=== PATIENT | female | born 2000 | race Caucasian/White ===

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

== ENCOUNTER → 2020-01-03 08:30 | Outpatient (BNVA) | payer MEDICAID, SELFPAY | PROVIDERS: Family Provider Nurse Practitioner Family; Visit Provider Obstetrics & Gynecology | DX: O99.810 Abnormal glucose complicating pregnancy (principal); Z34.03 Encounter for supervision of normal first pregnancy, third trimester; O99.013 Anemia complicating pregnancy, third trimester; Z34.90 Encounter for supervision of normal pregnancy, unspecified, unspecified trimester; O99.340 Other mental disorders complicating pregnancy, unspecified trimester; O99.613 Diseases of the digestive system complicating pregnancy, third trimester; K21.9 Gastro-esophageal reflux disease without esophagitis; O99.343 Other mental disorders complicating pregnancy, third trimester; O99.612 Diseases of the digestive system complicating pregnancy, second trimester; K59.00 Constipation, unspecified | CPT/HCPCS: 81000; 82607; 82728; 82746; 82951; 82952; 83550; 84439 ==

== ENCOUNTER → 2020-01-17 07:54 | Outpatient (BNVA) | payer MEDICAID, SELFPAY | PROVIDERS: Family Provider Nurse Practitioner Family; Visit Provider Obstetrics & Gynecology | DX: Z34.90 Encounter for supervision of normal pregnancy, unspecified, unspecified trimester (principal); Z34.03 Encounter for supervision of normal first pregnancy, third trimester | CPT/HCPCS: 81000 ==

== ENCOUNTER → 2020-01-23 14:14 | Outpatient (BNVA) | payer MEDICAID, SELFPAY | PROVIDERS: Family Provider Nurse Practitioner Family; Visit Provider Obstetrics & Gynecology | DX: O24.410 Gestational diabetes mellitus in pregnancy, diet controlled (principal) | CPT/HCPCS: 76816; 76819; 81000 ==

== ENCOUNTER → 2020-01-31 08:46 | Outpatient (BNVA) | payer MEDICAID, SELFPAY | PROVIDERS: Family Provider Nurse Practitioner Family; Visit Provider Obstetrics & Gynecology | DX: O09.893 Supervision of other high risk pregnancies, third trimester (principal); O24.919 Unspecified diabetes mellitus in pregnancy, unspecified trimester | CPT/HCPCS: 76816; 76819; 81000; 85027 ==

== ENCOUNTER → 2020-02-07 09:52 | Outpatient (BNVA) | payer MEDICAID, SELFPAY | PROVIDERS: Family Provider Nurse Practitioner Family; Visit Provider Obstetrics & Gynecology | DX: O24.410 Gestational diabetes mellitus in pregnancy, diet controlled (principal); Z3A.35 35 weeks gestation of pregnancy | CPT/HCPCS: 76816; 76819; 81000 ==

== ENCOUNTER → 2020-02-11 10:59 | Outpatient (BNVA) | payer MEDICAID, SELFPAY | PROVIDERS: Family Provider Nurse Practitioner Family; Visit Provider Obstetrics & Gynecology | DX: O24.419 Gestational diabetes mellitus in pregnancy, unspecified control (principal); Z3A.35 35 weeks gestation of pregnancy | CPT/HCPCS: 76816 ==

== ENCOUNTER → 2020-02-14 10:27 | Outpatient (BNVA) | payer MEDICAID, SELFPAY | PROVIDERS: Family Provider Nurse Practitioner Family; Visit Provider Obstetrics & Gynecology | DX: O09.893 Supervision of other high risk pregnancies, third trimester (principal); O24.410 Gestational diabetes mellitus in pregnancy, diet controlled | CPT/HCPCS: 81000; 87081 ==

== ENCOUNTER → 2020-02-21 09:28 | Outpatient (BNVA) | payer MEDICAID, SELFPAY | PROVIDERS: Family Provider Nurse Practitioner Family; Visit Provider Obstetrics & Gynecology | DX: O09.893 Supervision of other high risk pregnancies, third trimester (principal); O24.410 Gestational diabetes mellitus in pregnancy, diet controlled; Z3A.00 Weeks of gestation of pregnancy not specified | CPT/HCPCS: 81000 ==

== ENCOUNTER → 2020-02-28 13:49 | Outpatient (BNVA) | payer MEDICAID, SELFPAY | PROVIDERS: Family Provider Nurse Practitioner Family; Visit Provider Obstetrics & Gynecology | DX: O24.410 Gestational diabetes mellitus in pregnancy, diet controlled (principal); Z3A.00 Weeks of gestation of pregnancy not specified | CPT/HCPCS: 81000 ==

== ENCOUNTER 2020-03-03 12:55 | Outpatient (CLI) | payer MEDICAID, SELFPAY ==
[2020-03-03 13:18] VITALS: RESP 18; TEMP 36.3
--- NOTE | 2020-03-03 13:18 | US_ITS ---
WS: [id number] US OB BPP wo NST 00783 REASON FOR EXAM: GDM FINDINGS: Biweekly evaluation for GDM. Cephalic presentation The heart rate 141 beats for minute Amniotic fluid indices normal Anterior placenta is seen in satisfactory position. US/US OB BPP wo NST 26603 IMPRESSION: Venous at 38.5 weeks gestation due date March 12, 2020 Biophysical profile 05/10
[2020-03-03 13:20] VITALS: BMI 27.7
--- NOTE | 2020-03-03 13:25 | PC.NURSE ---
ULTRASOUND IN ROOM PERFORMING BPP AT THIS TIME.
[2020-03-03 13:54] VITALS: BP 120/76; PULSE 126
[2020-03-03 14:22] VITALS: BP 120/76; PULSE 126; RESP 18; TEMP 36.3
== END 2020-03-03 14:21 | disposition home or self-care (01) ==
LOC: OPOB 13:12 → OBGYN 03-04 08:30
PROVIDERS: Family Provider Nurse Practitioner Family; Visit Provider Obstetrics & Gynecology
DX: O26.899 Other specified pregnancy related conditions, unspecified trimester (principal); Z3A.00 Weeks of gestation of pregnancy not specified
CPT/HCPCS: 59025; 76819; 99211

== ENCOUNTER 2020-03-06 08:49 | Outpatient (CLI) | payer MEDICAID, SELFPAY ==
[2020-03-06 09:08] VITALS: BP 113/74; PULSE 92
--- NOTE | 2020-03-06 09:08 | US_ITS ---
WS: [id number] OB BPP wo NST 60776 REASON FOR EXAM: gestational diabetes FINDINGS: Cephalic presentation is seen. The cervix is closed and measured 5.22 cm. The heart rate 131 beats for minute. Anterior placenta . Measurements equal 39 weeks 1 day gestation due date March 12, 2020 The biophysical profile today shows poor breathing normal movement normal tone normal amn iotic fluid indices with a biophysical profile of 03/10. Previous biophysical profile on 03/03/2020 was 8/8. /US OB BPP wo NST 66521 IMPRESSION: Biophysical profile 03/10 today with for breathing identified. Otherwise no rmal findings.
[2020-03-06 09:25] VITALS: BMI 35.5
[2020-03-06 09:32] VITALS: TEMP 36.6
[2020-03-06 12:50] VITALS: BP 139/91; PULSE 87
--- NOTE | 2020-03-06 17:21 | PM.ACPR ---
NST (Non-Stress Test) NST : 1 Para: 0 Due date: 03/12/20 Gestational age (weeks): 39 Indications: Diet-controlled gestational diabetes in third trimester at 39-1/7 weeks gestation. Test: NST Time: 09:08 Length of test in Minutes: 22 Contractions: Occasional Fetus Fetus 1: Baseline FHR BMP:: 130 Variability: Moderate Accelerations: Present Decelerations: None Reacticity: Reactive Interpretation/Plan Interpretation by: Melchor Hernandez Comments: Reactive NST. Biophysical profile pending.
== END 2020-03-06 12:50 | disposition home or self-care (01) ==
LOC: OPOB 08:59 → OBGYN 09:01
PROVIDERS: Family Provider Nurse Practitioner Family; Visit Provider Obstetrics & Gynecology
DX: O24.419 Gestational diabetes mellitus in pregnancy, unspecified control (principal); Z3A.39 39 weeks gestation of pregnancy
CPT/HCPCS: 12345; 59025; 76819; 81000; 99211

== ENCOUNTER 2020-03-08 19:10 | Inpatient (IN) | payer MEDICAID, SELFPAY ==
[2020-03-08] VITALS (24 sets, daily range): BP systolic 0–154; BP diastolic 0–92; PULSE 71–109; RESP 18; TEMP 36.5; BMI 27.8
[2020-03-08 20:40] LABS: Glucose Point of Care 119 mg/dL (70-110)
[2020-03-08 20:58] LABS: Basophils # 0.1 10^3/uL (0.0-0.1); Basophils % 0.4 %; Eosinophils # 0.1 10^3/uL (0.0-0.8); Eosinophils % 0.8 %; Hematocrit 36.7 % (37.0-47.0); Hemoglobin 11.4 g/dL (11.5-15.3); Lymphocytes # 1.8 10^3/uL (1.5-6.5); Lymphocytes % 10.8 %; Mean Corpuscular HGB Conc 31.1 g/dL (30.0-36.0); Mean Corpuscular Hemoglobin 23.5 pg (28.0-34.0); Mean Corpuscular Volume 75.5 fL (81-99); Mean Platelet Volume 10.5 fL (7.4-10.4); Monocytes # 0.9 10^3/uL (0.2-0.9); Monocytes % 5.3 %; Neutrophils # 13.8 10^3/uL (1.8-8.0); Neutrophils % 81.8 %; Nucleated Red Blood Cells % 0 %; Platelet Count 205 10^3/cmm (130-400); Red Blood Count 4.86 10^6/uL (4.1-5.3); Red Cell Distribution Width 21.2 % (12.1-15.1); White Blood Count 16.9 10^3/uL (4.5-13.0)
[2020-03-08] MEDS: lactated ringers 1,000 ML 999 ML (21:45)
[2020-03-08 22:00] LABS: Urine Creatinine 119 mg/dL (28-217)
[2020-03-08] MEDS: miSOPROStol 100 mcg tablet 25 MCG VAGINAL (22:00)
[2020-03-08 22:04] LABS: UPRO/UCREAT Ratio 0.55 mg/mg CR; Urine Protein Random 65 mg/dL
[2020-03-08 22:33] LABS: Alanine Aminotransferase 7 U/L (0-33); Albumin Level 3.5 g/dL (3.5-5.2); Alkaline Phosphatase 121 IU/L (35-105); Anion Gap 14.5 (5-19); Aspartate Amino Transferase 14 U/L (0-32); Blood Urea Nitrogen 6 mg/dL (6-20); Calcium 8.5 mg/dL (8.5-10.5); Carbon Dioxide 20 mmol/L (22-29); Chloride 103 mmol/L (98-107); Globulin 2.3 g/dL (1.3-4.6); Glomerular Filtration Rate 205.6 mL/min (90-130); Glucose 119 mg/dL (65-115); Osmolality Calculated 275 mOsm/kg (285-295); Potassium 3.5 mmol/L (3.5-5.1); Sodium 134 mmol/L (136-145); Total Bilirubin 0.2 mg/dL (0.15-1.2); Total Protein 5.8 g/dL (6.6-8.7); Uric Acid 4.2 mg/dL (2.4-5.7)
[2020-03-08] MEDS: magnesium sulfate premix 4 GM/100 ML PREMIX IV (22:49)
[2020-03-08] MEDS: lactated ringers 1,000 ML 999 ML IV (22:54)
[2020-03-08 23:04] LABS: Magnesium Level (OB Only) 1.9 mg/dL (5.0-7.5)
[2020-03-08] MEDS: famotidine 20 mg/2 mL INJ IVP (23:28)
[2020-03-08] MEDS: metoclopramide 5 mg/mL SDV 2 mL 10 MG IVP (23:28)
[2020-03-08] MEDS: citric acid-sodium citrate 30 mL UDC PO (23:28)
[2020-03-09] VITALS (33 sets, daily range): BP systolic 104–129; BP diastolic 62–78; PULSE 63–101; RESP 16–18; TEMP 36.4–36.8; O2SAT 97–100
--- NOTE | 2020-03-09 01:02 | PM.OP ---
Operative Report Date of procedure: March 09, 2020 OPERATIVE REPORT Date of surgery: 03/08/2020 Date of dictation: 03/09/2020 Preoperative diagnosis: 19-year-old 1 para 0 at 39 weeks and 4 days gestation, gestational diabetic diet controlled-induction of labor, preeclampsia-mild, anemia on iron, depression on medication, category 2 tracing Postoperative diagnosis/findings:.same, baby girl, More weighing 7 pounds 1 ounce, 2305 g, 20-1/4 inch long, Apgars 9/9, clear fluid, nuchal cord x2-loose, cephalic. Normal tubes and ovaries bilaterally Procedure done: Primary low transverse delivery via Pfannenstiel incision Specimens removed/disposition of specimens: Placenta and cord which were discarded Surgeon: Dr. Jose Daugherty assistant housekeeping manager: Madison Brumfield Anesthesia: Spinal anesthesia Estimated blood loss: 700 ml Intravenous fluids: 900 mL of LR Urine output: 600 mL of clear urine at the end of procedure Medications: As per anesthesia records Complications: None, patient was left to recover in a stable condition INDICATION FOR SURGERY: Ms. Tobin is a 19-year-old 1 para 0 at 39 weeks and 3 days who presented to labor and delivery on 03/08/2020 for scheduled induction of labor for gestational diabetes-diet controlled. On initial evaluation tracing was category 1 with a baseline of 130, moderate variability, accelerations, no decelerations. Cervix was 1 cm, 50 and -2. She was noted to have a few elevated blood pressures and preeclamptic labs done show that she was preeclamptic with a protein creatinine ratio of 0.55. As lab work was getting done to rule out preeclampsia she was noted to have slightly late decelerations which was not identified and as a result Cytotec was placed at 10PM. Shortly after this the baby was noted to be tachycardic with the baseline of 160-165 with areas of minimal variability and persistent late decelerations. This persisted despite position changes, oxygen and IV fluid hydration. Given that her cervix had made no cervical change and she was still 1 cm 50% and -3 decision was made to proceed with delivery for category 2 tracing nonresponsive to resuscitative measures. This was discussed with patient. Consents were obtained and anesthesia and pediatricians were notified and patient was taken to the operating room. Time from decision to incision was 34 minutes. PROCEDURE: After consent was obtained, patient was taken to the operating room where spinal anesthesia was placed without difficulty. She was placed supine on the table with a left lateral wedge. Farris catheter and SCDs were placed. The abdomen was shaved and then prepped with duo prep. She was draped in a sterile fashion. After checking adequacy of anesthesia, a Pfannenstiel incision was made 2 cm above the pubic symphysis. The incision was carried down to the fascia using the Bovie. The fascia was nicked in the midline and the fascial incision was extended laterally using curved Mayos. The inferior aspect of the fascia was grasped with oscar clamps and dissected off from the underlying rectus muscle. This was repeated again superiorly without any difficulty. The rectus muscle was . A andres was made in the peritoneum and the peritoneal incision extended bluntly. No adhesions were noted from the uterus to the anterior abdominal wall. The uterus was noted to be rotated to the left. The bladder peritoneum was grasped with smooth forceps a bladder flap was created. the bladder blade was replaced thus protecting the bladder. A LOW TRANSVERSE UTERINE INCISION was made with a scalpel till the amniotic membrane was reached. The uterine incision was then extended laterally using bandage scissors. Amniotomy was done with Allis clamps and clear amniotic fluid was drained. The head of the baby was brought up to the level of the incision and delivered with fundal pressure. The remainder of body followed without any difficulty. The nose and mouth were suctioned, the umbilical cord was clamped and cut and the baby was handed off to the waiting dietary director, Dr. Hwang. The placenta was delivered spontaneously with fundal massage. It was noted to be intact and was discarded. The interior of the uterus was cleaned of all clot and debris and was noted to be matthew well. The uterus was exteriorized. The uterine incision was closed with 0 Vicryl in a running interlocking manner. Good hemostasis and reapproximation was obtained. Cmarfw-rp-[id number] sutures were placed in interrupted fashion for hemostasis and to imbricate the incision. The abdomen was irrigated and the gutters were cleaned of clot and debris. Normal tubes and ovaries were noted bilaterally. The uterus was placed back into the abdomen and uterine incision was noted to be hemostatic. The peritoneum was closed with a 2-0 plain in a continuous stitch. Good hemostasis was noted in the rectus muscle layer. The fascia was inspected for any defects and none were found and the fascia was closed with 0 Vicryl in continuous stitch. The subcutaneous plane was then irrigated and hemostasis was obtained using the Bovie. The subcutaneous plane was then reapproximated using 2-0 plain suture in a continuous manner. The skin was then closed with 4-0 Monocryl in a subcuticular fashion. Good reapproximation and hemostasis was noted. Steri-Strips were applied. The incision was dressed with Telfa ,ABD and paper tape. The fundus was noted to be firm at the end of the procedure and excess blood was expressed from the vagina. The patient was left to recover in a stable condition.
--- NOTE | 2020-03-09 01:04 | P.ANESASSM_ITS ---
Pre-Anesthetic Assessment Pre-Anesthetic Assessment: Height/Weight: Height 1.74 m Weight 84.368 kg Temp Pulse Resp BP 97.7 F 92 18 135/81 03/08/20 19:20 03/08/20 23:28 03/08/20 19:20 03/08/20 23:28 Proposed Procedure: Familial anesthetic complications: denies Was Beta Juan Manuel taken within 24 hours: N/A Last Intake: 20:00 Social: Social History: No alcohol and No tobacco Exam: Pre-Anes Outpt Exam: alert, oriented x 3 and clear to auscultation bila terally Airway: Submandibular: WNL Cervical ROM: WNL MP: 2 Dentition: Chipped History/ROS: No significant history except as noted Pulmonary: Pulmonary: None reported CV/HEM: CV/HEM: HTN : : None reported Hepatic: Hepatic: None reported GI: GI: GERD Metabolic: Metabolic: DM (gestational ) Musc/skel: Musc/skel: None reported Neuropsych: Neuropsych: None reported Anesthetic Plan: ASA status: 2E Anesthesia: Anesthesia Evaluation and Eval. for regional block Meds/Allergies Current Medications: Current Medications Generic Name Dose Route Start Last Admin Trade Name Freq PRN Reason Stop Dose Admin Lactated Ringer's 1,000 mls @ 999 m ls/hr 03/08/20 19:58 03/08/20 22:54 Lactated Ringers IV 999 mls/hr .Q1H1M PRN Administration Per L&D Rescitati on Protocol Misoprostol 25 mcg 03/08/20 20:00 03/08/20 22:00 Cytotec VAGINAL 03/09/20 08:01 25 mcg Q4H VINCE Administration PFSH Anesthesia PFSH: Surgical History No history of previous surgery Family History Denies family history of Colon cancer Ovarian cancer Diabetes Heart disease Hyperlipidemia Breast cancer Family history of thyroid problem Hypertension Uterine cancer Stroke Social History Smoking and tobacco status: never smoked Alcohol intake: never Female Reproductive History: : 1 Data Anesthesia CBC & Chem 7: 03/08/20 20:25 03/08/20 22:14 Other Labs: Laboratory Results - last 48 hr 03/08/20 03/08/20 03/08/20 20:25 20:35 21:27 WBC 16.9 H RBC 4.86 Hgb 11.4 L Hct 36.7 L MCV 75.5 L MCH 23.5 L MCHC 31.1 RDW 21.2 H Plt Count 205 MPV 10.5 H Neut % (Auto) 81.8 Lymph % (Auto) 10.8 Vermillion % (Auto) 5.3 Eos % (Auto) 0.8 Baso % (Auto) 0.4 Neut # (Auto) 13.8 H Lymph # (Auto) 1.8 Vermillion # (Auto) 0.9 Eos # (Auto) 0.1 Baso # (Auto) 0.1 Nucleated RBC % (auto) 0 Nucleated RBCs # 0.0 Sodium Potassium Chloride Carbon Dioxide Anion Gap BUN Creatinine GFR Calculation Glucose POC Glucose 119 Calculated Osmolality Uric Acid Calcium Magnesium Total Bilirubin AST ALT Alkaline Phosphatase Total Protein Albumin Globulin U Random Total Protein 65 Urine Creatinine 119 Protein/Creatinin Ratio 0.55 03/08/20 03/08/20 22:14 22:14 WBC RBC Hgb Hct MCV MCH MCHC RDW Plt Count MPV Neut % (Auto) Lymph % (Auto) Vermillion % (Auto) Eos % (Auto) Baso % (Auto) Neut # (Auto) Lymph # (Auto) Vermillion # (Auto) Eos # (Auto) Baso # (Auto) Nucleated RBC % (auto) Nucleated RBCs # Sodium 134 L Potassium 3.5 Chloride 103 Carbon Dioxide 20 L Anion Gap 14.5 BUN 6 Creatinine 0.4 L GFR Calculation 205.6 H Glucose 119 H POC Glucose Calculated Osmolality 275 L Uric Acid 4.2 Calcium 8.5 Magnesium 1.9 L* Total Bilirubin 0.2 AST 14 ALT 7 Alkaline Phosphatase 121 H Total Protein 5.8 L Albumin 3.5 Globulin 2.3 U Random Total Protein Urine Creatinine Protein/Creatinin Ratio Cardiac Studies: No Data to Display
[2020-03-09] MEDS: magnesium sulfate premix 4 GM/100 ML PREMIX IV (02:09)
[2020-03-09] MEDS: magnesium sulfate premix 20 GM/500 ML BAG IV ×3 (03:49→21:18)
[2020-03-09] MEDS: diphenhydrAMINE 50 mg/mL SDV 1mL 25 MG IVP (04:00)
--- NOTE | 2020-03-09 04:11 | PC.NURSE ---
PERIPHERAL IV PLACED BY THIS NURSE IN RIGHT FOREARM 03/08/20 AT 2015; LEFT FOREARM IV CHARTED BY MISTAKE.
--- NOTE | 2020-03-09 07:47 | PC.NURSE ---
AT 2237 03/08/20 THIS NURSE AND Terry ADLER RN IRRIGATED PT'S VAGINAL VAULT WITH 60ML SYRINGE OF NORMAL SALINE X2 FOLLOWING DR SILVA'S INSTRUCTION TO ATTEMPT TO REMOVE CYTOTEC. WHEN THIS NURSE POSITIONED PT FOR FLUSH, BITS OF CYTOTEC PILL WERE NOTED AROUND HER VAGINAL OPENING. AFTER IRRIGATION, MORE SMALL PIECES OF CYTOTEC WERE NOTED ON VERENICE. DR SILVA NOTIFIED.
[2020-03-09] MEDS: prenatal vitamin Capsule 1 CAP PO (08:57)
[2020-03-09] MEDS: HYDROcodone-acetaminophen 5-325 mg Tablet PO ×2 (08:57→21:22)
[2020-03-09] MEDS: docusate sodium 100 mg Capsule PO (08:57)
[2020-03-09] MEDS: ferrous sulfate EC 325 mg Tablet PO (08:57)
[2020-03-09] MEDS: ketorolac 30 mg/mL INJ 15 MG IVP (10:57)
[2020-03-09] MEDS: dextrose 5%-lactated ringers 1,000 ML 75 ML IV (13:12)
[2020-03-09 17:21] LABS: Hematocrit 30.7 % (37.0-47.0); Hemoglobin 9.5 g/dL (11.5-15.3); Mean Corpuscular HGB Conc 30.9 g/dL (30.0-36.0); Mean Corpuscular Hemoglobin 23.2 pg (28.0-34.0); Mean Corpuscular Volume 75.1 fL (81-99); Mean Platelet Volume 10.6 fL (7.4-10.4); Platelet Count 193 10^3/cmm (130-400); Red Blood Count 4.09 10^6/uL (4.1-5.3); Red Cell Distribution Width 20.6 % (12.1-15.1); White Blood Count 18.3 10^3/uL (4.5-13.0)
[2020-03-09 17:39] LABS: Magnesium Level (OB Only) 5.6 mg/dL (5.0-7.5)
--- NOTE | 2020-03-09 17:58 | P.PN_ITS ---
Subjective Subjective: Interval history: SUBJECTIVE: Ms. Nguyen is doing okay. She is just a little tired and groggy likely secondary to magnesium sulfate. She denies headaches, blurry vision, scotoma. She states her pain is well controlled at this time. She is bottlefeeding and bonding well with her daughter. She has a few questions about discharge. She denies nausea, vomiting, fever, chills and is tolerated ice chips without any difficulty. SCDs and Farris catheter is in place. OBJECTIVE/PHYSICAL EXAM: Gen.: No acute distress Heart: S1-S2 heard, regular rate and rhythm Lungs: Clear to auscultation bilaterally Abdomen: Soft, fundus firm below umbilicus, tenderness around incision. Incision: Clean dry and intact with dressing in place Legs: No calf tenderness, trace bilateral pitting pedal edema. ASSESSMENT AND PLAN: 19-year-old 1 para 1-0-0-1 status post primary low transverse delivery for nonreassuring heart tracing-postoperative day #1 -Continue routine care-p.o. pain medication as needed -Preeclampsia-continue magnesium sulfate until 3 AM-24 hours ncxbhkfgfv-[id number]-za magnesium levels. No signs of magnesium toxicity today. She is normotensive. -Hemoglobin stable at 9.5-patient asymptomatic. Stable anemia from prior to delivery. -GDM-reassess at 6 weeks. -Anticipate discontinuing magnesium sulfate after 24 hours after which Farris catheter can be removed and IV can be hep-locked. She can also ambulate at that time. Dressing to be removed after 24 hours. -Anticipate that patient will need to stay until at least Tuesday to recover from surgery as well as preeclampsia. Vitals/I&O/Wt Last Vital Signs Temp 98.0 F 03/09/20 16:45 Pulse 96 03/09/20 16:45 Resp 16 03/09/20 16:45 BP 113/67 03/09/20 16:45 Pulse Ox 98 03/09/20 04:45 03/09/20 03/09/20 03/09/20 06:59 14:59 22:59 Intake Total 1000 / 1000 471.25 / 471.25 Output Total 2850 / 2850 1055 / 1055 378 / 1433 Balance -1850 / -1850 -583.75 / -583.75 -378 / -961.75 Weight last 48 hrs Weight 186 lb Physical Exam Urinary Catheter Management^: Farris: Cath Placed During This Visit: yes Reason for Continuing Indwelling Catheter: Accurate Measurement of Urinary Output in Critically Ill Patients Urinary Catheter Date of Insertion: 03/08/20 Urinary Catheter Time of Insertion: 23:40 Data : 03/09/20 16:40 03/08/20 22:14 Attestations Medical Necessity Statement*: -Anticipate that patient will need to stay until at least Tuesday to recover from surgery as well as preeclampsia. Coding Level of Care Code Acute Cruller Maker Machine for Ramos Dee
--- NOTE | 2020-03-09 22:51 | PC.NURSE ---
Lab was called at 2204 to come up and draw the magnesium level. Lab replied that they would be right up. Lab called up to the floor at 2230 and stated that the biological lab technician and been in a possible covid room and wanted OB staff to draw the lab. Lab was drawn at 2234 with one stick and lab was taken immediately to laboratory.
[2020-03-10 00:40] VITALS: BP 102/62; PULSE 78; RESP 16; TEMP 36.4; O2SAT 96
[2020-03-10 01:30] VITALS: BP 99/63; PULSE 78; RESP 16; TEMP 36.5; O2SAT 98
[2020-03-10 02:30] VITALS: BP 108/61; PULSE 83; RESP 16; TEMP 36.6; O2SAT 97
[2020-03-10] MEDS: HYDROcodone-acetaminophen 5-325 mg Tablet PO ×2 (03:10→19:53)
[2020-03-10 05:50] VITALS: BP 101/63; PULSE 75; RESP 16; TEMP 36.9; O2SAT 98
[2020-03-10] MEDS: prenatal vitamin Capsule 1 CAP PO (09:55)
[2020-03-10] MEDS: docusate sodium 100 mg Capsule PO (09:55)
[2020-03-10] MEDS: ferrous sulfate EC 325 mg Tablet PO (09:56)
[2020-03-10 10:45] VITALS: BP 99/65; PULSE 85; RESP 16; TEMP 37.1; O2SAT 97
--- NOTE | 2020-03-10 12:01 | PM.PN ---
Subjective Subjective: Interval history: SUBJECTIVE: Ms. Acosta is doing okay today. She is glad to be off of the magnesia and denies nausea, vomiting, fever, chills, shortness of breath and chest pain. She has not yet voided since removal of the catheter. She is bottlefeeding without any difficulty and denies any depressive symptoms. She denies headaches, scotoma. Pain is well controlled with p.o. pain medication although she is a little sore at this time. Has not really been using the incentive spirometer at this time. OBJECTIVE/PHYSICAL EXAM: Gen.: No acute distress Heart: S1-S2 heard, regular rate and rhythm Lungs: Clear to auscultation bilaterally Abdomen: Soft, fundus firm below umbilicus, tenderness around incision. Incision: Clean dry and intact with Steri-Strips. Legs: No calf tenderness, trace bilateral pitting pedal edema. ASSESSMENT AND PLAN: 19-year-old 1 para 1001 status post for nonreassuring heart tracing, postoperative day #2 -Doing well-encourage ambulation and advance diet to regular as she is already passed flatus -P.o. pain medication as needed -Preeclampsia-status post magnesium sulfate for 24 hours-normotensive and asymptomatic at this time-magnesium sulfate has been discontinued and Farris catheter has been ilgxfhbvetag-[id number]-mj void -Anticipate discharge home tomorrow as long as she continues to do well at this time. -Mild anemia with a hemoglobin of 9.5-asymptomatic with stable vital signs-p.o. iron as needed. Vitals/I&O/Wt Last Vital Signs Temp 98.4 F 03/10/20 05:50 Pulse 75 03/10/20 05:50 Resp 16 03/10/20 05:50 BP 101/63 03/10/20 05:50 Pulse Ox 98 03/10/20 05:50 03/09/20 03/10/20 03/10/20 22:59 06:59 14:59 Intake Total 1791.459 / 2262.709 1578.958 / 3841.667 Output Total 1548 / 2603 1290 / 3893 Balance 243.459 / -340.291 288.958 / -51.333 Weight last 48 hrs Weight 186 lb Physical Exam Urinary Catheter Management^: Farris: Cath Placed During This Visit: yes, but has since been removed by the nurse Reason for Continuing Indwelling Catheter: Accurate Measurement of Urinary Output in Critically Ill Patients Urinary Catheter Date of Insertion: 03/08/20 Urinary Catheter Time of Insertion: 23:40 Date Urinary Catheter Removed: 03/10/20 Time Urinary Catheter Discontinued: 03:30 Data : 03/09/20 16:40 03/08/20 22:14 Attestations Medical Necessity Statement*: staying till tomoow for recovery Coding Level of Care Code Acute Solder Making Supervisor for Ramos Dee
[2020-03-10 16:40] VITALS: BP 119/71; PULSE 92; RESP 16; TEMP 36.9; O2SAT 97
--- NOTE | 2020-03-10 16:54 | P.DS_ITS ---
Discharge Providers Date of Admission: 03/08/20 19:10 Date of Discharge: March 10, 2020 Attending Provider at Admission: Jose Clark MD Attending Provider at Discharge: Jose Clark MD Reason for Visit Reason for Visit: induction Hospital Course Discharge Summary: Preoperative diagnosis: 19-year-old 1 para 0 at 39 weeks and 4 days gestation, gestational diabetic diet controlled-induction of labor, preeclampsia-mild, anemia on iron, depression on medication, category 2 tracing Postoperative diagnosis/findings:.same, baby girl, More weighing 7 pounds 1 ounce, 2305 g, 20-1/4 inch long, Apgars 9/9, clear fluid, nuchal cord x2-loose, cephalic. Normal tubes and ovaries bilaterally Procedure done: Primary low transverse delivery via Pfannenstiel incision INDICATION FOR SURGERY: Ms. Tobin is a 19-year-old 1 para 0 at 39 weeks and 3 days who presented to labor and delivery on 03/08/2020 for scheduled induction of labor for gestational diabetes-diet controlled. On initial evaluation tracing was category 1 with a baseline of 130, moderate variability, accelerations, no decelerations. Cervix was 1 cm, 50 and -2. She was noted to have a few elevated blood pressures and preeclamptic labs done show that she was preeclamptic with a protein creatinine ratio of 0.55. As lab work was getting done to rule out preeclampsia she was noted to have slightly late decelerations which was not identified and as a result Cytotec was placed at 10PM. Shortly after this the baby was noted to be tachycardic with the baseline of 160-165 with areas of minimal variability and persistent late decelerations. This persisted despite position changes, oxygen and IV fluid hydration. Given that her cervix had made no cervical change and she was still 1 cm 50% and -3 decision was made to proceed with delivery for category 2 tracing nonresponsive to resuscitative measures. This was discussed with patient. Consents were obtained and anesthesia and pediatricians were notified and patient was taken to the operating room. Time from decision to incision was 34 minutes. HOSPITAL COURSE: She underwent an uncomplicated delivery on 03/08/2020. Please see operative report for details. She was continued on magnesium sulfate for 24 hours for seizure prophylaxis and during this time had adequate diuresis and remained normotensive without any preeclamptic symptoms. After 24 hours of magnesium sulfate it was discontinued, Farris catheter was removed. She did well on day 1 and 2 and was ambulating well, tolerating regular diet, voiding freely, passing flatus. She was bottlefeeding without difficulty and bonding well with her daughter. Pain was well-controlled with by mouth pain medication. She denied nausea, vomiting, fever, chills, shortness of breath, leg pain. She had moderate vaginal bleeding. On day #1 and 2 she continued to do well with stable vital signs and stable hemoglobin at 9.5. She was discharged home on day 2 in a stable condition, as she desired early discharge. During this time she remained completely normotensive and had no preeclamptic symptoms and although she was encouraged to stay till postoperative day #3 she declined this and definitely wanted to be discharged home.. Warning signs for endometritis, wound infection, mastitis, DVT/PE were reviewed with her. Post delivery activity restrictions were also reviewed with her at all her questions were answered to her satisfaction. She is unsure about what she wants to use for contraception and will follow up with Dr. Hernandez about this. EXAM AT DISCHARGE: Gen.: No acute distress Heart: S1-S2 heard, regular rate and rhythm Lungs: Clear to auscultation bilaterally Abdomen: Soft, fundus firm below umbilicus, tenderness around incision. Incision: Clean dry and intact with Steri-Strips. Legs: No calf tenderness, trace bilateral pitting pedal edema. CONDITION AT DISCHARGE: Stable Physical Exam Urinary Catheter Management^: Farris: Cath Placed During This Visit: yes, but has since been removed by the nurse Reason for Continuing Indwelling Catheter: Accurate Measurement of Urinary Output in Critically Ill Patients Urinary Catheter Date of Insertion: 03/08/20 Urinary Catheter Time of Insertion: 23:40 Date Urinary Catheter Removed: 03/10/20 Time Urinary Catheter Discontinued: 03:30 Discharge Data Data Completed and Pending: Labs from last 24 hours 03/09/20 03/09/20 03/09/20 22:19 16:40 16:40 WBC 18.3 H RBC 4.09 L Hgb 9.5 L Hct 30.7 L MCV 75.1 L MCH 23.2 L MCHC 30.9 RDW 20.6 H Plt Count 193 MPV 10.6 H Magnesium 6.0 5.6 Vitals: Last Vital Signs Temp 98.7 F 03/10/20 10:45 Pulse 85 03/10/20 10:45 Resp 16 03/10/20 10:45 BP 99/65 03/10/20 10:45 Pulse Ox 97 03/10/20 10:45 Discharge Plan Discharge Patient Disposition: Home, Self-Care Condition: Stable Prescriptions: New hydrocodone-acetaminophen 5-325 mg tablet 1 tab PO Q6H Qty: 25 RF: 0 ibuprofen 800 mg tablet 800 mg PO Q8H Qty: 30 RF: 0 docusate sodium 100 mg Capsule 100 mg PO BID PRN (Reason: constipation) Qty: 30 RF: 0 Continued famotidine 20 mg tablet 20 mg PO BID Qty: 60 RF: 5 fluoxetine 10 mg capsule 20 mg PO DAILY Qty: 30 RF: 5 prenat.vits,clinton,yjk-xyuf-nzdjo Tablet 1 tab PO QDAY RF: 0 ferrous sulfate 325 mg (65 mg iron) tablet 325 mg PO BID Qty: 30 RF: 4 Discontinued acetaminophen [Tylenol Extra Strength] 500 mg tablet 1,000 mg PO Q6H PRN (Reason: Abdominal Discomfort) RF: 0 No Action (DME) blood-glucose meter [Blood Glucose Monitoring] Kit See Rx Instructions .ROUTE .MEDSUPPLY Qty: 1 RF: 0 Discharge Orders: Discharge Order (Routine); Ordered 03/10/20 Ordered By: Jose Clark Referrals: Jose Clark MD [Physician] - (1 week blood pressure check in 2-week incision check with Dr. Daugherty, 6-week visit with Dr. Hernandez) Discharge Diet: Usual diet Activity Restrictions/Additional Instructions: Pelvic rest for 6 weeks, no heavy lifting more than 10 pounds for 6 weeks Discharge Attestations Time Spent in Discharge Care*: greater than 30 min Quality Metrics Clinical Quality Measures During this hospital stay, did patient experience: None Coding Level of Care Code Acute Java Web Developer for Ramos Dee
== END 2020-03-10 19:55 | disposition home or self-care (01) | DRG 788 ==
PROVIDERS: Admitting Provider Obstetrics & Gynecology; Visit Provider Obstetrics & Gynecology
PROC: 3E0P7VZ Introduction of Hormone into Female Reproductive, Via Natural or Artificial Opening (ICD-10-PCS; CPT 59514; principal; 2020-03-08 23:00)
DX: O24.420 Gestational diabetes mellitus in childbirth, diet controlled (principal); O99.344 Other mental disorders complicating childbirth; F32.9 Major depressive disorder, single episode, unspecified; O99.02 Anemia complicating childbirth; D50.9 Iron deficiency anemia, unspecified; O76 Abnormality in fetal heart rate and rhythm complicating labor and delivery; O69.2XX0 Labor and delivery complicated by other cord entanglement, with compression, not applicable or unspecified; O14.04 Mild to moderate pre-eclampsia, complicating childbirth; Z3A.39 39 weeks gestation of pregnancy; Z37.0 Single live birth; O75.89 Other specified complications of labor and delivery; K21.9 Gastro-esophageal reflux disease without esophagitis
CPT/HCPCS: 12345; 36415; 36416; 51702; 59025; 59409; 80053; 82570; 82962; 83735; 84156; 84550; 85025; 85027; 96375; 99211; G0378; J1200; J1885; J2274; J2405; J2550; J2590; J2765; J3475; J3490; J7030

== ENCOUNTER → 2020-10-17 10:19 | Outpatient (BNVA) | payer BC, SELFPAY | PROVIDERS: Visit Provider Nurse Practitioner Family | DX: Z30.09 Encounter for other general counseling and advice on contraception (principal); R11.2 Nausea with vomiting, unspecified; J02.8 Acute pharyngitis due to other specified organisms; B96.89 Other specified bacterial agents as the cause of diseases classified elsewhere | CPT/HCPCS: 81025 ==

== ENCOUNTER → 2021-02-05 13:32 | Outpatient (BNVA) | payer BC, SELFPAY | PROVIDERS: Visit Provider Psychiatry & Neurology Psychiatry | DX: F33.2 Major depressive disorder, recurrent severe without psychotic features (principal); F43.12 Post-traumatic stress disorder, chronic | CPT/HCPCS: 90792 ==

== ENCOUNTER → 2021-07-17 13:04 | Outpatient (BNVA) | payer BC, SELFPAY | PROVIDERS: Visit Provider Nurse Practitioner Women's Health | DX: N92.6 Irregular menstruation, unspecified (principal) | CPT/HCPCS: 81025 ==

== ENCOUNTER → 2021-10-20 14:11 | Outpatient (BNVA) | payer BC, SELFPAY | PROVIDERS: PCP Registered Nurse; Visit Provider Registered Nurse | DX: Z20.822 Contact with and (suspected) exposure to COVID-19 (principal); R68.89 Other general symptoms and signs; J06.9 Acute upper respiratory infection, unspecified | CPT/HCPCS: 87400; 87635; 87880 ==

== ENCOUNTER 2022-02-15 05:09 | Inpatient (IN) | payer BC, MEDICAID, SELFPAY ==
[2022-02-15] VITALS (31 sets, daily range): BP systolic 116–145; BP diastolic 59–96; PULSE 52–89; RESP 15–18; TEMP 36.1–36.8; O2SAT 96–100; BMI 29.3
[2022-02-15 05:39] LABS: Basophils % 0.3 %; Eosinophils # 0.1 10^3/uL (0.0-0.8); Hematocrit 25.8 % (37.0-47.0); Hemoglobin 7.5 g/dL (11.5-15.3); Lymphocytes # 1.8 10^3/uL (0.8-4.8); Mean Corpuscular HGB Conc 29.1 g/dL (30.0-36.0); Mean Corpuscular Hemoglobin 18.8 pg (28.0-34.0); Mean Corpuscular Volume 64.8 fl (81-99); Monocytes # 0.9 10^3/uL (0.2-0.9); Monocytes % 6.1 %; Neutrophils # 10.98 10^3/uL (1.8-7.7); Neutrophils % 77.7 %; Nucleated Red Blood Cells % 0.2 %; Platelet Count 198 10^3/cmm (130-400); Red Blood Count 3.98 10^6/uL (4.1-5.3); Red Cell Distribution Width 18.9 % (12.1-15.1); White Blood Count 14.1 10^3/uL (4.0-10.0)
[2022-02-15 05:41] LABS: Mean Platelet Volume 10.5 fL (7.4-10.4)
[2022-02-15] MEDS: lactated ringers 1,000 ML 999 ML IV (05:45)
[2022-02-15 05:55] LABS: Amphetamines Screen Urine Negative (Negative); Barbiturates Screen Urine Negative (Negative); Benzodiazepines Screen Urine Negative (Negative); Cocaine Screen Urine Negative (Negative); Opiate Screen Urine Negative (Negative); PCP Screen Urine Negative (Negative); THC Screen Urine Negative (Negative)
--- NOTE | 2022-02-15 06:38 | P.HP_ITS ---
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 Her has been unremarkable. She has received consistent care. Her labs were also unremarkable. Her blood type is a positive. Her antibody screen was negative. She passed her glucose screen. The remainder of her labs were within normal limits. Present Details : 2 Para: 1 Date of Last Menstrual Period: 09/26/20 Calculated Date of Delivery: 07/03/21 Gestational Age Based on Last Menstrual Period: 72 Labs Rubella: Immune RPR: Negative GBS: Negative Review of Systems General: Reports: 10 or more systems reviewed and unremarkable except in HPI and below Const: Reports: fatigue; Denies: fever(s) Eyes: Denies: change in vision Card: Denies: chest pain Musc: Reports: back pain Bull/Lymph: Denies: easy bruising Medications/Allergies Home Medications Medication Instructions Recorded Confirmed Last Taken Type 1 tab PO DAILY 02/15/22 02/15/22 2 Days Ago History ~02/13/22 Vitamin C 1 tab PO DAILY 02/15/22 02/15/22 2 Days Ago History ~02/13/22 iron 1 tab PO DAILY 02/15/22 02/15/22 2 Days Ago History ~02/13/22 Allergies Allergy/AdvReac Type Severity Reaction Status Date / Time No Known Allergies Allergy Verified 02/15/22 05:20 PFSH [employer] PFSH: Medical History History of depression Had depression during first , treated with fluoxetine. History of gestational diabetes GDM in first Surgical History Status post delivery (03/08/20) PLTCS. Dx: NRFHT. [place] [facility] [place] History Grandmother Hypertension maternal Denies family history of Colon cancer Ovarian cancer Diabetes Heart disease Hyperlipidemia Breast cancer Family history of thyroid problem Uterine cancer Stroke Other Female Reproductive History: Hx Age of Menarche: 12 History History History 1 Term 1 Miscarriages/Ectopic 0 0 Living Children 1 Vitals/I&O/Wt Last Vital Signs Temp 97.0 F L 02/15/22 05:16 Pulse 81 02/15/22 05:57 Resp 15 02/15/22 05:15 BP 131/82 02/15/22 05:57 Weight last 48 hrs Weight 199 lb Physical Exam Const: COMMON NORMALS: patient oriented x3 and alert HENMT: COMMON NORMALS: moist oral mucous membranes HEAD & SCALP: normal to inspection Chest: COMMONS NORMALS: normal inspection of the chest Resp: COMMON NORMALS: clear to auscultation bilaterally AUSCULTATION: clear to auscultation bilaterally Cardio: COMMON NORMALS: regular rate and regular rhythm RATE: regular rate RHYTHM: regular rhythm GI: INSPECTION: Yes normal to inspection and Yes other (Gravid) Extremity: COMMON NORMALS: normal to inspection GENERAL: Yes edema (Trace) Neuro: COMMON NORMALS: patient oriented x3, moves all extremities and no sensory deficits noted SENSORIUM/ORIENTATION: Yes alert Psych: COMMON NORMALS: mental status grossly normal Skin: COMMON NORMALS: no rashes or lesions noted GENERAL SKIN EXAM: no rashes or lesions noted Data : 02/15/22 05:32 A&P Assessment and plan (1) 39 weeks gestation of : Status: Acute (2) History of : We have discussed the risks of a including the risks of bleeding, infection, and damage to intra-abdominal organs. The patient and her have no further questions and wished to proceed. Status: Acute (3) Anemia affecting : The patient is hemodynamically stable, but does have a surprisingly low hemoglobin. As a result we will have 2 large-bore IVs and have a unit of blood running while she is going to the OR. Status: Resolved Qualifiers: Trimester: third trimester Qualified Code(s): O99.013 - Anemia complicating , third trimester Attestations Medical Necessity Statement*: I anticipate routine and post C- section care Coding Level of Care Code Acute Package Sealer for Chg Fwd Diagnoses 39 weeks gestation of Z3A.39 History of Z98.891 Anemia affecting O99.013 Trimester: third trimester
[2022-02-15] MEDS: citric acid-sodium citrate 30 mL UDC PO (06:54)
[2022-02-15] MEDS: famotidine 20 mg/2 mL INJ IVP (06:55)
[2022-02-15] MEDS: metoclopramide 5 mg/mL SDV 2 mL 10 MG IVP (06:55)
--- NOTE | 2022-02-15 06:55 | P.ANESUD_ITS ---
Pre-Anesthetic Update Pre-Anesthetic Assessment: Date of Surgery/Procedure: 02/15/22 Preop Ronda gnosis: repeat c section Proposed Procedure: Operation Date: 02/15/22 07:20 Proposed Procedures p Section(Not Applicable) - Tristan Spears MD Any changes to Pre-Anesthetic Assessment?: No Last Intake: Intake Last Liquid Date 02/15/22 Last Liquid Time 03:00 Last Solid Date 02/14/22 Last Solid Time 22:00 Labs Last 48hrs: Short CBC 02/15/22 Range/Units 05:32 WBC 14.1 H (4.0-10.0) 10^3/ uL Hgb 7.5 L (11.5-15.3) g/dL Hct 25.8 L (37.0-47.0) % MCV 64.8 L (81-99) fl Plt Count 198 (130-400) 10^3/c mm Neut % (Auto) 77.7 % Neut # (Auto) 10.98 H (1.8-7.7) 10^3/u L Blood Bank 02/15/22 05:32 Blood Type A Positive Rho(D) Type Positive Antibody Screen Negative Vitals: Temperature 97.0 F L 02/15/22 05:16 Temperature Source Temporal Artery S can 02/15/22 05:15 Pulse Rate 81 02/15/22 05:57 Pulse Rhythm 02/15/22 05:17 Pulse Strength 3+ Normal 02/15/22 05:17 Respiratory Rate 15 02/15/22 05:15 Respiratory Effort Non-Labored 02/15/22 05:17 Respiratory Depth Normal 02/15/22 05:17 Respiratory Patter n 02/15/22 05:17 Blood Pressure 131/82 02/15/22 05:57 Oxygen Delivery Me thod 02/15/22 05:17 Exam: Pre-Anes Outpt Exam: alert, oriented x 3, clear to auscultation bilaterally and regular rate & rhythm Cardiac Studies: No Data to Display
--- NOTE | 2022-02-15 08:32 | PM.OP ---
Operative Report Date of procedure: February 15, 2022 Pre-op diagnosis: Repeat c section 39 weeks estimated gestational age Anemia of Post-op diagnosis: Same Procedure done: Low transverse section Specimens removed/disposition: 1. Female with a weight of 8 pounds 5 ounces and Apgars of 9 and 9 2. Placenta with a three-vessel cord delivered intact Surgeon: Tristan Spears Estimated blood loss (mL): 400 Brief History: The patient was given blood while surgery was occurring due to the hemoglobin of 7.5 just prior to a surgery with a high potential for significant blood loss. Procedure: The patient was brought back to the operating room where she was prepped and draped in usual sterile fashion. Anesthesia was found to be adequate. A lower transverse skin incision was then made with a #10 blade. I then dissected down to the underlying subcutaneous tissue until arriving at the prerectal fascia. The fascia was then nicked with the scalpel bilaterally. The fascial incisions were then carried laterally with Alcazar scissors. Attention was then turned to the superior aspect of the incision which was grasped with kochers and tented up away from the underlying rectus abdominis muscles. The muscles were then dissected away from the fascia manually, and later with Alcazar scissors. Attention was then turned to the inferior aspect of the incision, and the fascia was dissected away from the underlying muscle in similar fashion. The rectus abdominis muscles were then spread manually. The peritoneum was entered manually. Excellent visualization of the uterus was noted. A lower transverse uterine incision was then made with a #10 blade. Upon arriving at the intrauterine cavity, the uterine incision was then extended manually. The was noted to be in vertex position. The baby was delivered without difficulty There was no meconium. There was no nuchal cord. The cord was cut and clamped. The baby was then handed to the waiting nurse. The placenta was removed intact. The uterus was externalized. The intrauterine cavity was cleansed of any remaining debris. The uterine incision was reapproximated in 2 layers. The first layer was performed with 0 Vicryl in a running locked stitch. The second layer was an imbricating stitch also using 0 Vicryl. The uterus was replaced into the abdomen. The peritoneum was then irrigated with warm saline. I reexamined the uterine incision and found it to be hemostatic. The rectus abdominis muscles were then reapproximated using 0 Vicryl in a running stitch. The fascia was then reapproximated using 0 Vicryl in running stitch. The skin was reapproximated using sangeeta. A sterile dressing was placed. All counts were correct x2. Both the mother and baby were in stable condition.
[2022-02-15] MEDS: lactated ringers 1,000 ML 125 ML IV (08:44)
[2022-02-15] MEDS: diphenhydrAMINE 50 mg/mL SDV 1mL 25 MG IVP (09:40)
[2022-02-15 12:03] LABS: Basophils # 0.1 10^3/uL (0.0-0.1); Basophils % 0.3 %; Eosinophils # 0.1 10^3/uL (0.0-0.8); Eosinophils % 0.3 %; Hematocrit 34.7 % (37.0-47.0); Hemoglobin 10.4 g/dL (11.5-15.3); Lymphocytes # 1.8 10^3/uL (0.8-4.8); Lymphocytes % 7.6 %; Mean Corpuscular Hemoglobin 20.7 pg (28.0-34.0); Mean Platelet Volume 10.7 fL (7.4-10.4); Monocytes # 1.1 10^3/uL (0.2-0.9); Monocytes % 4.7 %; Neutrophils # 20.24 10^3/uL (1.8-7.7); Neutrophils % 85.8 %; Nucleated Red Blood Cells % 0.2 %; Platelet Count 188 10^3/cmm (130-400); Red Blood Count 5.03 10^6/uL (4.1-5.3); White Blood Count 23.6 10^3/uL (4.0-10.0)
[2022-02-15 12:26] LABS: Slide Review Slide Review Perform
[2022-02-15] MEDS: ketorolac 30 mg/mL INJ IVP ×2 (13:59→19:27)
[2022-02-15 16:12] LABS: Hematocrit 31.2 % (37.0-47.0); Hemoglobin 9.4 g/dL (11.5-15.3); Mean Corpuscular HGB Conc 30.1 g/dL (30.0-36.0); Mean Corpuscular Hemoglobin 20.6 pg (28.0-34.0); Mean Corpuscular Volume 68.4 fl (81-99); Mean Platelet Volume 10.7 fL (7.4-10.4); Platelet Count 184 10^3/cmm (130-400); Red Blood Count 4.56 10^6/uL (4.1-5.3); Red Cell Distribution Width 22.3 % (12.1-15.1); White Blood Count 19.9 10^3/uL (4.0-10.0)
[2022-02-15] MEDS: dextrose 5%-lactated ringers 1,000 ML 125 ML IV (16:48)
[2022-02-15] MEDS: docusate sodium 100 mg Capsule PO ×2 (17:55→21:20)
[2022-02-15] MEDS: ferrous sulfate EC 325 mg Tablet PO (17:55)
[2022-02-15] MEDS: hyDROXYzine 25 mg Capsule 50 MG PO (19:25)
[2022-02-16] MEDS: ketorolac 30 mg/mL INJ IVP (02:26)
[2022-02-16 04:23] LABS: Hematocrit 26.9 % (37.0-47.0); Hemoglobin 8.1 g/dL (11.5-15.3); Mean Corpuscular HGB Conc 30.1 g/dL (30.0-36.0); Mean Corpuscular Hemoglobin 20.6 pg (28.0-34.0); Mean Corpuscular Volume 68.3 fl (81-99); Mean Platelet Volume 10.5 fL (7.4-10.4); Platelet Count 168 10^3/cmm (130-400); Red Blood Count 3.94 10^6/uL (4.1-5.3); Red Cell Distribution Width 21.6 % (12.1-15.1); White Blood Count 12.5 10^3/uL (4.0-10.0)
[2022-02-16 04:25] VITALS: BP 114/70; PULSE 76; RESP 16; TEMP 37
[2022-02-16] MEDS: HYDROcodone-acetaminophen 5-325 mg Tablet PO ×2 (06:09→14:13)
[2022-02-16] MEDS: diphenhydrAMINE 50 mg/mL SDV 1mL 25 MG IVP (06:10)
--- NOTE | 2022-02-16 07:02 | P.DS_ITS ---
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 The patient was noted to have significant anemia prior to the surgery. As result blood transfusions were initiated prior to surgery beginning. The procedure was unremarkable. Intraoperative bleeding was better than average. And there were no complications. Her course was also unremarkable. She breast-fed very well. Her pain was well controlled with ibuprofen and occasional h ydrocodone. She passed gas the same day the procedure. She began eating a regular diet the same day of the procedure. There have been no other concerns. Information Peripartum Data: Infant Delivery Method: Physical Exam Narrative: She is in no acute distress Lungs are clear auscultation bilaterally Her heart has a regular rate and rhythm Her fundus is below the umbilicus and firm Her dressing is clean, dry and intact Her extremities have trace edema Urinary Catheter Management: Farris: Cath Placed During This Visit: yes, but has since been removed by the nurse Reason for Continuing Indwelling Catheter: Not indwelling catheter Urinary Catheter Date of Insertion: 02/15/22 Urinary Catheter Time of Insertion: 07:25 Date Urinary Catheter Removed: 02/15/22 Time Urinary Catheter Discontinued: 19:30 History History History 1 Term 1 Miscarriages/Ectopic 0 0 Living Children 1 Discharge Data Studies Completed and Pending Pending at discharge Category Date Time Status PACKED CELLS [Leukocyte Reduced RBC] Stat Lab 02/15/22 05:32 Results Type and Screen Stat Lab 02/15/22 05:32 Results Laboratory Results WBC 12.5 10^3/uL (4.0-10.0) H 02/16/22 04:15 RBC 3.94 10^6/uL (4.1-5.3) L 02/16/22 04:15 Hgb 8.1 g/dL (11.5-15.3) L 02/16/22 04:15 Hct 26.9 % (37.0-47.0) L 02/16/22 04:15 MCV 68.3 fl (81-99) L 02/16/22 04:15 MCH 20.6 pg (28.0-34.0) L 02/16/22 04:15 MCHC 30.1 g/dL (30.0-36.0) 02/16/22 04:15 RDW 21.6 % (12.1-15.1) H 02/16/22 04:15 Plt Count 168 10^3/cmm (130-400) 02/16/22 04:15 MPV 10.5 fL (7.4-10.4) H 02/16/22 04:15 Neut % (Auto) 85.8 % 02/15/22 11:45 Lymph % (Auto) 7.6 % 02/15/22 11:45 Bay % (Auto) 4.7 % 02/15/22 11:45 Eos % (Auto) 0.3 % 02/15/22 11:45 Baso % (Auto) 0.3 % 02/15/22 11:45 Neut # (Auto) 20.24 10^3/uL (1.8-7.7) H 02/15/22 11:45 Lymph # (Auto) 1.8 10^3/uL (0.8-4.8) 02/15/22 11:45 Bay # (Auto) 1.1 10^3/uL (0.2-0.9) H 02/15/22 11:45 Eos # (Auto) 0.1 10^3/uL (0.0-0.8) 02/15/22 11:45 Baso # (Auto) 0.1 10^3/uL (0.0-0.1) 02/15/22 11:45 Nucleated RBC % (auto) 0.2 % 02/15/22 11:45 Nucleated RBCs # 0.0 /100WBC 02/15/22 11:45 Urine Opiates Screen Negative ng/mL (Negative) 02/15/22 05:30 Ur Barbiturates Screen Negative ng/mL (Negative) 02/15/22 05:30 Ur Phencyclidine Scrn Negative ng/mL (Negative) 02/15/22 05:30 Ur Amphetamines Screen Negative ng/mL (Negative) 02/15/22 05:30 U Benzodiazepines Scrn Negative ng/mL (Negative) 02/15/22 05:30 Urine Cocaine Screen Negative ng/mL (Negative) 02/15/22 05:30 U Marijuana (THC) Screen Negative ng/mL (Negative) 02/15/22 05:30 Blood Type A Positive 02/15/22 05:32 Rho(D) Type Positive 02/15/22 05:32 Antibody Screen Negative 02/15/22 05:32 Crossmatch See Detail 02/15/22 05:32 Vitals Last Vital Signs Temp 98.6 F 02/16/22 04:25 Pulse 76 02/16/22 04:25 Resp 16 02/16/22 04:25 BP 114/70 02/16/22 04:25 Pulse Ox 99 02/15/22 18:03 Discharge Plan Discharge Patient Disposition: Home Condition: Stable Prescriptions: New ibuprofen 800 mg Tablet 800 mg PO TID Qty: 45 0RF hydrocodone-acetaminophen 5-325 mg Tablet 1 - 2 tab PO Q4H PRN (Reason: Moderate To Severe Pain) Qty: 20 0RF Continued 1 tab PO DAILY 0RF Vitamin C 1 tab PO DAILY 0RF iron 1 tab PO DAILY 0RF Discharge Orders: Discharge Order (Routine); Ordered 02/16/22 Ordered By: Tristan Spears Referrals: Tristan Spears MD [Physician] - 02/18/22 Discharge Diet: Usual diet Discharge Activity: Limit activity as instructed Patient Instructions: Opioid Safety Activity Restrictions/Additional Instructions: Instructed that the patient needs to take iron with vitamin C separate from meals every day. We also discussed the importance of coming in if she has any extra bleeding or hemodynamic instability. We discussed without look like clinically. 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
[2022-02-16] MEDS: ferrous sulfate EC 325 mg Tablet PO (10:14)
[2022-02-16] MEDS: prenatal vitamin Capsule 1 CAP PO (10:14)
[2022-02-16] MEDS: docusate sodium 100 mg Capsule PO (10:14)
[2022-02-16 10:30] VITALS: BP 117/68; PULSE 91; RESP 16; TEMP 36.6
[2022-02-16 14:43] VITALS: BP 129/82; PULSE 97; RESP 16; TEMP 36.7
[2022-02-16 15:28] VITALS: BP 129/82; PULSE 97; RESP 16; TEMP 36.7
== END 2022-02-16 15:05 | disposition home or self-care (01) | DRG 788 ==
PROVIDERS: Admitting Provider Family Medicine; PCP Registered Nurse; Visit Provider Family Medicine
PROC: 10D00Z1 Extraction of Products of Conception, Low, Open Approach (ICD-10-PCS; CPT 59514; principal; 2022-02-15 07:00)
DX: O34.211 Maternal care for low transverse scar from previous cesarean delivery (principal); Z3A.39 39 weeks gestation of pregnancy; Z37.0 Single live birth; O99.02 Anemia complicating childbirth; D64.9 Anemia, unspecified
CPT/HCPCS: 12345; 36410; 36415; 36430; 51702; 59025; 59409; 80306; 85025; 85027; 86850; 86900; 86920; 96374; 96376; J0690; J1200; J1885; J2274; J2405; J2765; J3010; J3490; P9016

== ENCOUNTER 2024-09-15 07:55 | Outpatient (CLI) | payer BC, MEDICAID, SELFPAY ==
[2024-09-15 07:55] VITALS: BMI 30.5
[2024-09-15 08:12] VITALS: BP 142/81; PULSE 90
[2024-09-15 08:27] VITALS: BP 142/89; PULSE 88
[2024-09-15 08:42] VITALS: BP 133/75; PULSE 78
[2024-09-15 08:57] VITALS: BP 137/74; PULSE 77
[2024-09-15 09:12] VITALS: BP 121/59; PULSE 76
[2024-09-15 09:45] VITALS: BP 129/59; PULSE 76; O2SAT 98
== END 2024-09-15 09:45 | disposition home or self-care (01) ==
LOC: OPOB 08:06 → OBGYN 08:07
PROVIDERS: PCP Registered Nurse; Visit Provider Family Medicine
DX: O36.8190 Decreased fetal movements, unspecified trimester, not applicable or unspecified (principal); Z3A.00 Weeks of gestation of pregnancy not specified; R10.9 Unspecified abdominal pain
CPT/HCPCS: 59025; 99211

== ENCOUNTER 2024-10-23 05:07 | Inpatient (IN) | payer BC, MEDICAID, SELFPAY ==
--- NOTE | 2024-10-16 10:06 | ANES.PREANE2 ---
Pre-Anesthetic Assessment Height/Weight: Height 5 ft 9 in Preop Diagnosis: Planned Operation Date: 10/23/24 07:20 Proposed Procedures p Section 07729(Not Applicable) - Tristan Spears MD Was Beta Juan Manuel taken within 24 hours: N/A Was Clonidine taken within 24 hours: N/A Social No alcohol and No tobacco Exam alert, oriented x 3, clear to auscultation bilaterally and regular rate & rhythm Airway Submandibular: within normal limits Cervical ROM: within normal limits Mallampati: Class I Dentition: full Anesthetic Plan ASA status: 2 Anesthesia: Regional (specify below) Other: No prior issues with anesthesia Multiple prior C-sections without issues Denies any cardiac or pulmonary issues Only taking vitamin METs greater than 4 Will obtain labs day of procedure Plan for routine with spinal Medications/Allergies Home Medications Medication Instructions Recorded Confirmed Last Taken Type norelgestromin 150 mcg-e.estradiol 1 patch transdermal Q7D #3 ea 07/12/23 07/12/23 Unknown Rx 35 mcg/24 hr weekly transderm patch (Xulane) Allergies Allergy/AdvReac Type Severity Reaction Status Date / Time bupropion [From Wellbutrin] Allergy ADR-Halluci Verified 07/12/23 13:19 [facility] Anesthesia Medical History History of depression Had depression during first , treated with fluoxetine. History of gestational diabetes GDM in first Surgical History Status post delivery (03/08/20) PLT. Dx: NRFHT. Performed by Dr. Daugherty at [facility] [place]. Family History Grandmother Hypertension maternal Denies family history of Colon cancer Ovarian cancer Diabetes Heart disease Hyperlipidemia Breast cancer Family history of thyroid problem Uterine cancer Stroke Social History Substance/Drug Use: never Data Anesthesia Cardiac Studies: No Data to Display
[2024-10-23] VITALS (92 sets, daily range): BP systolic 105–134; BP diastolic 56–89; PULSE 47–99; RESP 16–18; TEMP 35.8–36.7; O2SAT 91–100; BMI 31.1
[2024-10-23] MEDS: sodium chloride 0.9% 1,000 ML 999 ML IV (06:19)
[2024-10-23] MEDS: citric acid-sodium citrate 30 mL UDC PO (06:20)
[2024-10-23] MEDS: metoclopramide 5 mg/mL SDV 2 mL 10 MG IVP (06:20)
[2024-10-23] MEDS: famotidine 20 mg/2 mL INJ IVP (06:21)
[2024-10-23 06:23] LABS: Basophils # 0.1 10^3/uL (0.0-0.1); Basophils % 0.3 %; Eosinophils # 0.1 10^3/uL (0.0-0.8); Eosinophils % 0.7 %; Hematocrit 28.5 % (36-47); Lymphocytes # 1.9 10^3/uL (0.8-4.8); Lymphocytes % 11.5 %; Mean Corpuscular HGB Conc 30.5 g/dL (30-55); Mean Corpuscular Hemoglobin 20.3 pg (27-33); Mean Corpuscular Volume 66.6 fl (85-98); Mean Platelet Volume 10.5 fL (7.4-10.4); Monocytes % 6.3 %; Neutrophils # 13.22 10^3/uL (1.8-7.7); Nucleated Red Blood Cells % 0.1 %; Platelet Count 196 10^3/cmm (157-399); Red Blood Count 4.28 10^6/uL (3.85-5.65); Red Cell Distribution Width 17.1 % (12.1-15.1); White Blood Count 16.52 10^3/uL (3.29-11.43)
--- NOTE | 2024-10-23 06:46 | P.HP_ITS ---
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 Her dates are based on a first trimester ultrasound. Her has been otherwise unremarkable. Her blood type is a positive. Her antibody screen is negative. She failed her 1 hour glucose screen but passed her 3-hour glucose screen. She was positive for marijuana on her drug screen. She is rubella immune. She is GBS negative. The remainder of her infectious disease profile is within normal limits. Present Details : 3 Para: 2 Review of Systems 2 General: Reports: 10 or more systems reviewed and unremarkable except in HPI and below Const: Reports: fatigue; Denies: fever(s) Eyes: Denies: change in vision Card: Denies: chest pain Musc: Reports: back pain Bull/Lymph: Denies: easy bruising Medications/Allergies Home Medications Medication Instructions Recorded Confirmed Last Taken Type norelgestromin 150 mcg-e.estradiol 1 patch transdermal Q7D #3 ea 07/12/23 07/12/23 Unknown Rx 35 mcg/24 hr weekly transderm patch (Xulane) Allergies Allergy/AdvReac Type Severity Reaction Status Date / Time bupropion [From Wellbutrin] Allergy ADR-Halluci Verified 10/23/24 05:38 nating PFS 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 History of gestational diabetes GDM in first Surgical History Status post delivery (03/08/20) PLTCS. Dx: NRFHT. [place] [facility] [place] Family History Grandmother Hypertension maternal Denies family history of Colon cancer Ovarian cancer Diabetes Heart disease Hyperlipidemia Breast cancer Family history of thyroid problem Uterine cancer Stroke Social History Substance/Drug Use: never Other Female Reproductive History: Hx Age of Menarche: 12 History History History 2 3 Term 2 0 Miscarriages/Ectopic 0 Living Children 2 Vitals/I&O/Wt Last Vital Signs Pulse 99 10/23/24 05:24 BP 134/89 10/23/24 05:24 Weight last 48 hrs Weight 211 lb Physical Exam 2 Const: COMMON NORMALS: patient oriented x3 and alert HENMT: COMMON NORMALS: moist oral mucous membranes HEAD & SCALP: normal to inspection Chest: COMMONS NORMALS: normal inspection of the chest Resp: COMMON NORMALS: clear to auscultation bilaterally AUSCULTATION: clear to auscultation bilaterally Cardio: COMMON NORMALS: regular rate and regular rhythm RATE: regular rate RHYTHM: regular rhythm GI: INSPECTION: Yes normal to inspection and Yes other (Gravid) Extremity: COMMON NORMALS: normal to inspection GENERAL: Yes edema (Trace) Neuro: COMMON NORMALS: patient oriented x3, moves all extremities and no sensory deficits noted SENSORIUM/ORIENTATION: Yes alert Psych: COMMON NORMALS: mental status grossly normal Skin: COMMON NORMALS: no rashes or lesions noted GENERAL SKIN EXAM: no rashes or lesions noted Data 10/23/24 06:14 Results Labs OB ([facility]): 2 Obstetrics US 08/07/24 Hct 28.5 % (36-47) L 10/23/24 Hgb 8.70 g/dL (11.27-16.99) L 10/23/24 Plt Count 196 10^3/cmm (157-399) 10/23/24 A&P Assessment and plan (1) 39 weeks gestation of : We will proceed with her section. Because of her low hemoglobin we will place 2 IVs. (2) History of section: Attestations 2 Medical Necessity Statement*: I anticipate routine and post care Coding Level of Care Code Acute Code for Chg Fwd Diagnoses 39 weeks gestation of Z3A.39 History of section Z98.891
--- NOTE | 2024-10-23 06:48 | P.ANESUD_ITS ---
Pre-Anesthetic Update Pre-Anesthetic Assessment: Date of Surgery/Procedure: 10/23/24 Preop Ronda gnosis: Planned Proposed Procedure: Operation Date: 10/23/24 07:20 Proposed Procedures p Section 25899(Not Applicable) - Tristan Spears MD Changes from Pre-Anesthetic Assessment: No changes since I saw him a last week, labs reviewed today and acceptable for spinal anesthesia. Will plan on getting a second IV prior to . Hemoglobin 8.7 Labs Last 48hrs: Short CBC 10/23/24 10/23/24 Range/Units 05:51 06:14 WBC Cancelled 16.52 H Hgb Cancelled 8.70 L Hct Cancelled 28.5 L MCV Cancelled 66.6 L Plt Count Cancelled 196 Neut % (Auto) Cancelled 80.0 Neut # (Auto) Cancelled 13.22 H Vitals: Pulse Rate 99 10/23/24 05:24 Blood Pressure 134/89 10/23/24 05:24 Cardiac Studies: No Data to Display
[2024-10-23] MEDS: BUPivacaine 0.5% INJ 30 mL INJECTION (07:00)
[2024-10-23] MEDS: ceFAZolin 2,000 mg SDV 2000 MG IVP (07:00)
[2024-10-23 07:27] LABS: Amphetamines Screen Urine Negative (Negative); Barbiturates Screen Urine Negative (Negative); Benzodiazepines Screen Urine Negative (Negative); Cocaine Screen Urine Negative (Negative); Opiate Screen Urine Negative (Negative); PCP Screen Urine Negative (Negative); THC Screen Urine Negative (Negative)
--- NOTE | 2024-10-23 08:38 | P.OP_ITS ---
Operative Report Date of procedure: October 23, 2024 Pre-op diagnosis: 1. 24-year-old 3 para 2-0-0-2 at 39 weeks with a previous section presenting for a repeat section Post-op diagnosis: Status post low-transverse section Procedure done: Low-transverse section Specimens removed/disposition: 1. Female with a weight of 3360 grams and Apgars of 8 and 9 2. Placenta with a three-vessel cord delivered intact Surgeon: Tristan Spears MD Estimated blood loss (mL): 300 Procedure: The patient was brought back to the operating room where she was prepped and aleida ped in usual sterile fashion. Anesthesia was found to be adequate. A lower transverse skin incision was then made with a #10 blade. I then dissected down to the underlying subcutaneous tissue until arriving at the prerectal fascia. The fascia was then nicked with the scalpel bilaterally. The fascial incisions were then carried laterally with Alcazar scissors. Attention was then turned to the superior aspect of the incision which was grasped with kochers and tented up away from the underlying rectus abdominis muscles. The muscles were then dissected away from the fascia manually, and later with Alcazar scissors. Attention was then turned to the inferior aspect of the incision, and the fascia was dissected away from the underlying muscle in similar fashion. The rectus abdominis muscles were then spread manually. The peritoneum was entered manually. Excellent visualization of the uterus was noted. A lower transverse uterine incision was then made with a #10 blade. Upon arriving at the intrauterine cavity, the uterine incision was then extended manually. The infant was noted to be in vertex position. The baby was delivered without difficulty and placed on the abdomen where the cord was cut and clamped and the baby was then handed to the waiting nurse.. There was no meconium. There was no nuchal cord. The placenta was removed intact. The uterus was externalized. The intrauterine cavity was cleansed of any remaining debris. The uterine incision was reapproximated in 2 layers. The first layer was performed with 0 Vicryl in a running locked stitch. The second layer was an imbricating stitch also using 0 Vicryl. The uterus was replaced into the abdomen. The peritoneum was then irrigated with warm saline. I reexamined the uterine incision and found it to be hemostatic. The rectus abdominis muscles were then reapproximated using 0 Vicryl in a running stitch. The fascia was then reapproximated using 0 Vicryl in running stitch. The subcutaneous tissue was then reapproximated using 0 Vicryl in a running stitch. The skin was reapproximated using sangeeta. A sterile dressing was placed. All counts were correct x2. Both the mother and baby were in stable condition.
--- NOTE | 2024-10-23 09:00 | ANE.PACU2 ---
Inpatient post-anesthesia follow up: Airway intact: Yes Vital signs: Temperature 96.4 F Pulse Rate 66 Respiratory Rate 17 Blood Pressure 116/67 Pulse Oximetry 100 Oxygen Delivery Me thod Room Air Oxygen Flow Rate Fraction of Inspir ed Oxygen Hydration adequate: Yes Nausea and vomiting: No Pain level: 1 Mental status: Baseline
[2024-10-23] MEDS: diphenhydrAMINE 50 mg/mL SDV 1mL 25 MG IVP ×2 (09:53→19:08)
[2024-10-23] MEDS: hyDROXYzine 25 mg Capsule 50 MG PO (14:24)
[2024-10-23 14:59] LABS: Hematocrit 26.7 % (36-47); Mean Corpuscular HGB Conc 29.6 g/dL (30-55); Mean Corpuscular Volume 67.6 fl (85-98); Mean Platelet Volume 10.1 fL (7.4-10.4); Platelet Count 176 10^3/cmm (157-399); Red Blood Count 3.95 10^6/uL (3.85-5.65); Red Cell Distribution Width 17.2 % (12.1-15.1); White Blood Count 16.78 10^3/uL (3.29-11.43)
[2024-10-23] MEDS: ketorolac 30 mg/mL INJ IVP ×2 (15:58→23:02)
[2024-10-23] MEDS: docusate sodium 100 mg Capsule PO (19:05)
[2024-10-23] MEDS: HYDROcodone-acetaminophen 5-325 mg Tablet PO (19:05)
[2024-10-23] MEDS: ferrous sulfate EC 325 mg Tablet PO (19:05)
[2024-10-23] MEDS: simethicone 80 mg Chew PO (23:03)
[2024-10-24] MEDS: HYDROcodone-acetaminophen 5-325 mg Tablet PO ×3 (00:48→15:55)
[2024-10-24 05:07] VITALS: BP 122/72; PULSE 72; TEMP 36.1
[2024-10-24] MEDS: ketorolac 30 mg/mL INJ IVP (05:11)
[2024-10-24 05:40] LABS: Hematocrit 26.4 % (36-47); Mean Corpuscular HGB Conc 30.7 g/dL (30-55); Mean Corpuscular Hemoglobin 20.8 pg (27-33); Mean Corpuscular Volume 67.7 fl (85-98); Mean Platelet Volume 9.8 fL (7.4-10.4); Platelet Count 171 10^3/cmm (157-399); Red Cell Distribution Width 17.2 % (12.1-15.1); White Blood Count 11.34 10^3/uL (3.29-11.43)
--- NOTE | 2024-10-24 08:20 | P.DS_ITS ---
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 She was noted to have an hemoglobin of 8.7 prior to the . Her was unremarkable. Her course has also been unremarkable. Her bleeding has been within normal limits. Her pain has been well-controlled. She has been ambulating. She passed flatus the same day as surgery. She is tolerated and advance diet. Information Peripartum Data: Delivery Method: Physical Exam Narrative: She is in no acute distress Lungs are clear auscultation bilaterally Her heart has a regular rate and rhythm Her fundus is below the umbilicus and firm Her dressing is clean, dry and intact Her extremities have trace edema Urinary Catheter Management: Farris: Cath Placed During This Visit: yes, but has since been removed by the nurse Reason for Continuing Indwelling Catheter: Decision to DC Catheter Urinary Catheter Date of Insertion: 10/23/24 Urinary Catheter Time of Insertion: 07:38 Date Urinary Catheter Removed: 10/23/24 Time Urinary Catheter Discontinued: 17:45 History History History 3 Term 2 0 Miscarriages/Ectopic 0 Living Children 2 Discharge Data Studies Completed and Pending Pending at discharge Category Date Time Status RED BLOOD CELLS [Leukocyte Reduced RBC] Stat Lab 10/23/24 06:14 Results Type and Screen Routine Lab 10/23/24 06:14 Results Laboratory Results WBC 11.34 10^3/uL (3.29-11.43) 10/24/24 05:30 Corrected WBC Cancelled 10/23/24 05:51 RBC 3.90 10^6/uL (3.85-5.65) 10/24/24 05:30 Hgb 8.10 g/dL (11.27-16.99) L 10/24/24 05:30 Hct 26.4 % (36-47) L 10/24/24 05:30 MCV 67.7 fl (85-98) L 10/24/24 05:30 MCH 20.8 pg (27-33) L 10/24/24 05:30 MCHC 30.7 g/dL (30-55) 10/24/24 05:30 RDW 17.2 % (12.1-15.1) H 10/24/24 05:30 Plt Count 171 10^3/cmm (157-399) 10/24/24 05:30 MPV 9.8 fL (7.4-10.4) 10/24/24 05:30 Gran % Cancelled 10/23/24 05:51 Neut % (Auto) 80.0 % 10/23/24 06:14 Lymph % (Auto) 11.5 % 10/23/24 06:14 [place] % (Auto) 6.3 % 10/23/24 06:14 Eos % (Auto) 0.7 % 10/23/24 06:14 Baso % (Auto) 0.3 % 10/23/24 06:14 Neut # (Auto) 13.22 10^3/uL (1.8-7.7) H 10/23/24 06:14 Lymph # (Auto) 1.9 10^3/uL (0.8-4.8) 10/23/24 06:14 [place] # (Auto) 1.0 10^3/uL (0.2-0.9) H 10/23/24 06:14 Eos # (Auto) 0.1 10^3/uL (0.0-0.8) 10/23/24 06:14 Baso # (Auto) 0.1 10^3/uL (0.0-0.1) 10/23/24 06:14 Absolute Gran (auto) Cancelled 10/23/24 05:51 Nucleated RBC % (auto) 0.1 % 10/23/24 06:14 Nucleated RBCs # 0.0 /100WBC 10/23/24 06:14 Urine Opiates Screen Negative ng/mL (Negative) 10/23/24 06:40 Ur Barbiturates Screen Negative ng/mL (Negative) 10/23/24 06:40 Ur Phencyclidine Scrn Negative ng/mL (Negative) 10/23/24 06:40 Ur Amphetamines Screen Negative ng/mL (Negative) 10/23/24 06:40 U Benzodiazepines Scrn Negative ng/mL (Negative) 10/23/24 06:40 Urine Cocaine Screen Negative ng/mL (Negative) 10/23/24 06:40 U Marijuana (THC) Screen Negative ng/mL (Negative) 10/23/24 06:40 Blood Type A Positive 10/23/24 06:14 Rho(D) Type Rh positive 10/23/24 06:14 Antibody Screen Negative 10/23/24 06:14 Crossmatch See Detail 10/23/24 06:14 Vitals Last Vital Signs Temp 97.0 F L 10/24/24 05:07 Pulse 72 10/24/24 05:07 Resp 18 10/23/24 21:12 BP 122/72 10/24/24 05:07 Pulse Ox 100 10/23/24 14:37 O2 Del Method Room Air 10/23/24 21:12 Results Labs OB ([facility] [place]): Obstetrics US 08/07/24 Blood Type A Positive 10/23/24 Antibody Screen Negative 10/23/24 Hct 26.4 % (36-47) L 10/24/24 Hgb 8.10 g/dL (11.27-16.99) L 10/24/24 Rho(D) Type Rh positive 10/23/24 Plt Count 171 10^3/cmm (157-399) 10/24/24 Urine Opiates Screen Negative ng/mL (Negative) 10/23/24 Ur Barbiturates Screen Negative ng/mL (Negative) 10/23/24 Ur Phencyclidine Scrn Negative ng/mL (Negative) 10/23/24 Ur Amphetamines Screen Negative ng/mL (Negative) 10/23/24 U Benzodiazepines Scrn Negative ng/mL (Negative) 10/23/24 Urine Cocaine Screen Negative ng/mL (Negative) 10/23/24 U Marijuana (THC) Screen Negative ng/mL (Negative) 10/23/24 Discharge Plan Discharge Patient Disposition: Home Condition: Stable Prescriptions: New ibuprofen 800 mg Tablet 800 mg PO TID Qty: 45 0RF hydrocodone-acetaminophen 5-325 mg Tablet 1 tab PO Q6H PRN (Reason: Moderate To Severe Pain) Qty: 28 0RF ferrous sulfate 325 mg (65 mg iron) Tablet,Delayed Release (Dr/Ec) 325 mg PO DAILY Qty: 90 0RF No Action Xulane 150-35 mcg/24 hr patch weekly 1 patch transdermal Q7D Qty: 3 0RF Rx Instructions: apply once weekly for 3 weeks of a 4-week cycle Discharge Orders: Discharge Order (Routine); Ordered 10/24/24 Ordered By: Tristan Spears Referrals: Tristan Spears MD [Physician] - 4-7 days Discharge Diet: Usual diet Discharge Activity: Limit activity as instructed Patient Instructions: Depression (DC), Opioid Safety (DC), Preeclampsia and Eclampsia After Delivery (GEN), Hemorrhage (DC), OB - Tory/Mil, OB Discharge Report, OB Food/Drug Interaction Guide, OB Care at Home, Opioid Safety, Abnormal Bleeding Discharge 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
[2024-10-24 09:10] VITALS: BP 126/61; PULSE 68
[2024-10-24] MEDS: ferrous sulfate EC 325 mg Tablet PO (09:25)
[2024-10-24] MEDS: docusate sodium 100 mg Capsule PO (09:26)
[2024-10-24] MEDS: PRENATAL VIT NO.130/IRON/FOLIC 1 EACH TABLET PO (09:26)
[2024-10-24] MEDS: ibuprofen 800 mg tablet PO (13:21)
[2024-10-24 15:32] VITALS: BP 123/78; PULSE 83
[2024-10-24 16:00] VITALS: BP 123/78; PULSE 83; O2SAT 98
== END 2024-10-24 16:00 | disposition home or self-care (01) | DRG 788 ==
PROVIDERS: Admitting Provider Family Medicine; PCP Registered Nurse; Visit Provider Family Medicine
PROC: 10D00Z1 Extraction of Products of Conception, Low, Open Approach (ICD-10-PCS; CPT 59514; principal; 2024-10-23 07:00)
DX: O34.211 Maternal care for low transverse scar from previous cesarean delivery (principal); N85.8 Other specified noninflammatory disorders of uterus; Z3A.39 39 weeks gestation of pregnancy; Z37.0 Single live birth
CPT/HCPCS: 36415; 51702; 59025; 59409; 80306; 85025; 85027; 86850; 86900; 86920; 96374; 96376; J0690; J1200; J1885; J2274; J2371; J2405; J2765; J3010; J3490; J7030

== ENCOUNTER 2025-03-26 19:26 | Emergency (ER) | payer BC, MEDICAID, SELFPAY ==
[2025-03-26 19:27] VITALS: BP 123/80; PULSE 75; RESP 16; TEMP 36.8; O2SAT 97; BMI 29.5
--- NOTE | 2025-03-26 19:30 | ED.C_ITS ---
HPI - Psych 2 General: Chief Complaint: Overdose Stated Complaint: OD Time Seen by Provider: 03/26/25 19:27 Source: patient and EMS Mode of arrival: EMS Limitations: no limitations History of Present Illness: 24-year-old female who states that she h as been severely depressed states today she just had a thought to harm herself and took 8 of her 100 mg Effexor's and attempt to harm herself. States she was suicidal. She denies any worsening improving factors. Associated symptoms: Reports depression and suicidal ideation Related Data Home Medications ?Medication ?Instructions ?Recorded ?Confirmed olanzapine 5 mg tablet See Rx Instructions .Route . COMPLEX 03/27/25 03/27/25 omeprazole 20 mg tablet,delayed 20 mg PO DAILY 5 03/27/25 release venlafaxine 100 mg tablet 100 mg PO BID 03/27/2503/27 Allergies Allergy/AdvReac Type Severity Reaction Status Date / Time bupropion (From Wellbutrin) Allergy ADR-Halluci Verified 10/23/24 05:38 nating Review of Systems 2 Const: Denies: fever(s), chills, body aches or change in appetite ENMT: Denies: throat pain or dental pain Card: Denies: chest pain Resp: Denies: dyspnea GI: Denies: abdominal pain, nausea, vomiting or diarrhea Musc: Denies: neck pain or back pain Skin/Breast: Denies: rash Neuro: Denies: headache(s) Psych: Reports: depression and suicidal ideation PFSH ED 2 PFSH: Medical History History of depression Had depression during first , treated with fluoxetine. History of gestational diabetes GDM in first Surgical History Status post delivery (03/08/20) PLTCS. Dx: NRFHT. Performed by Dr. Daugherty at [facility] [place]. Family History Grandmother Hypertension maternal Denies family history of Colon cancer Ovarian cancer Diabetes Heart disease Hyperlipidemia Breast cancer Family history of thyroid problem Uterine cancer Stroke Social History Substance/Drug Use: never Physical Exam 2 Const: COMMON NORMALS: no acute distress, patient oriented x3 and healthy appearing HENMT: COMMON NORMALS: normocephalic and atraumatic HEAD & SCALP: n ormocephalic and atraumatic Eye: COMMON NORMALS: conjunctivae normal CONJUNCTIVA: Yes conjunctivae normal Neck/C-Spine: COMMON NORMALS: full ROM and supple Chest: COMMONS NORMALS: normal inspection of the chest Resp: COMMON NORMALS: normal respiratory effort Cardio: COMMON NORMALS: regular rate, regular rhythm and No murmurs present (Cardio) RATE: regular rate RHYTHM: regular rhythm Extremity: COMMON NORMALS: normal to inspection and full ROM Neuro: COMMON NORMALS: patient oriented x3, moves all extremities and no focal motor deficits Psych: COMMON NORMALS: mental status grossly normal, Normal thought process present and cooperative MOOD & AFFECT: Yes depressed mood THOUGHT PROCESS: Normal thought process present THOUGHT CONTENT: Yes Suicidality present Skin: COMMON NORMALS: no rashes or lesions noted and no wounds GENERAL SKIN EXAM: no rashes or lesions noted Course 2 Vital Signs: Vital signs: Vital Signs Temperature 98.2 F 03/27/25 05:30 Pulse Rate 77 03/27/25 05:30 Respiratory Rate 17 03/27/25 05:30 Blood Pressure 136/87 03/27/25 05:30 Pulse Oximetry 100 03/27/25 05:30 Oxygen Delivery Me thod Room Air 03/27/25 05:30 MDM - Psych Medical Decision Making Patient presents for suicidal ideations along with attempt of drug overdose she is medically cleared she is excepted at [facility] will transfer there for bed availability. Medical Records I reviewed the patient's medical records. Lab Data I reviewed the patient's lab results. 03/26/25 19:39 03/26/25 19:39 Laboratory Results WBC 10.18 10^3/uL (3.29-11.43) 03/26/25 19:39 RBC 5.11 10^6/uL (3.85-5.65) 03/26/25 19:39 Hgb 9.80 g/dL (11.27-16.99) L 03/26/25 19:39 Hct 33.2 % (36-47) L 03/26/25 19:39 MCV 65.0 fl (85-98) L 03/26/25 19:39 MCH 19.2 pg (27-33) L 03/26/25 19:39 MCHC 29.5 g/dL (30-55) L 03/26/25 19:39 RDW 18.9 % (12.1-15.1) H 03/26/25 19:39 Plt Count 298 10^3/cmm (157-399) 03/26/25 19:39 MPV 10.7 fL (7.4-10.4) H 03/26/25 19:39 Neut % (Auto) 66.6 % 03/26/25 19:39 Lymph % (Auto) 23.2 % 03/26/25 19:39 [place] % (Auto) 6.9 % 03/26/25 19:39 Eos % (Auto) 2.5 % 03/26/25 19:39 Baso % (Auto) 0.5 % 03/26/25 19:39 Neut # (Auto) 6.79 10^3/uL (1.8-7.7) 03/26/25 19:39 Lymph # (Auto) 2.4 10^3/uL (0.8-4.8) 03/26/25 19:39 [place] # (Auto) 0.7 10^3/uL (0.2-0.9) 03/26/25 19:39 Eos # (Auto) 0.3 10^3/uL (0.0-0.8) 03/26/25 19:39 Baso # (Auto) 0.1 10^3/uL (0.0-0.1) 03/26/25 19:39 Nucleated RBC % (auto) 0 % 03/26/25 19:39 Nucleated RBCs # 0.0 /100WBC 03/26/25 19:39 Sodium 139 mmol/L (136-145) 03/26/25 19:39 Potassium 3.5 mmol/L (3.5-5.1) 03/26/25 19:39 Chloride 102 mmol/L (98-107) 03/26/25 19:39 Carbon Dioxide 23 mmol/L (22-29) 03/26/25 19:39 Anion Gap 17.5 (5-19) 03/26/25 19:39 BUN 8 mg/dL (6-20) 03/26/25 19:39 Creatinine 0.6 mg/dL (0.5-0.9) 03/26/25 19:39 GFR Calculation 122.8 mL/min (90-130) 03/26/25 19:39 Glucose 76 mg/dL (65-115) 03/26/25 19:39 Calculated Osmolality 285 mOsm/kg (285-295) 03/26/25 19:39 Calcium 9.8 mg/dL (8.5-10.5) 03/26/25 19:39 Magnesium 1.9 mg/dL (1.7-2.3) 03/26/25 19:39 Total Bilirubin 0.5 mg/dL (0.15-1.2) 03/26/25 19:39 AST 31 U/L (0-32) 03/26/25 19:39 ALT 34 U/L (0-33) H 03/26/25 19:39 Alkaline Phosphatase 103 U/L (35-105) 03/26/25 19:39 Total Protein 7.8 g/dL (6.6-8.7) 03/26/25 19:39 Albumin 4.7 g/dL (3.5-5.2) 03/26/25 19:39 Globulin 3.1 g/dL (1.3-4.6) 03/26/25 19:39 HCG, Qual Negative (Negative) 03/26/25 19:50 Salicylates < 0.3 mg/dL (3-10) L 03/26/25 19:39 Urine Opiates Screen Negative ng/mL (Negative) 03/26/25 19:50 Acetaminophen < 5.0 ug/mL (10-30) L 03/26/25 19:39 Ur Barbiturates Screen Negative ng/mL (Negative) 03/26/25 19:50 Ur Phencyclidine Scrn Negative ng/mL (Negative) 03/26/25 19:50 Ur Amphetamines Screen Negative ng/mL (Negative) 03/26/25 19:50 U Benzodiazepines Scrn Negative ng/mL (Negative) 03/26/25 19:50 Urine Cocaine Screen Negative ng/mL (Negative) 03/26/25 19:50 U Marijuana (THC) Screen Positive ng/mL (Negative) H 03/26/25 19:50 Ethyl Alcohol < 10 mg/dL (0-10) 03/26/25 19:39 Influenza A (PCR) Negative (Negative) 03/26/25 20:05 Influenza Type B (PCR) Negative (Negative) 03/26/25 20:05 RSV (PCR) Negative (Negative) 03/26/25 20:05 SARS-CoV-2 (PCR) Negative (Negative) 03/26/25 20:05 No radiology studies performed this visit EKG Data EKG 1: I personally reviewed and interpreted this EKG as follows: EKG interpretation date: 03/26/25 EKG interpretation time: 19:54 Interpretation: nsr hr [address] elevation qrs 96 qtc 391 Discharge Plan Discharge Patient Disposition: Xfer Psychiatric Hosp Clinical Impression: Suicidal ideation Condition: Stable Referrals: Cliff Cardoso FNP [Nurse Practitioner, Family Practice] Print Language: [place] Coding Level of Care Code ED Purchasing Specialist for Ramos Dee
--- OUTSIDE RECORDS SUMMARY | 2025-03-26 19:30 | XMS_ITS | Data Portability ---
Author Organization [facility] Address [address] [facility] [address] [place] [address] Assessment Encounter Date Assessment Date Assessment LastModified by Organization Details LastModified Time 09/18/2024 09/18/2024 We discussed the risks of a including the risks of bleeding, infection, and damage to intra-abdomin al organs. She has no further questions and wishes to proceed. [email or web address] Not available 09/18/2024 15:52:01 Plan of Treatment Reminders Order Date Submit Date Provider Last Modified By Organization Details Last Modified Time Details Appointments None recorded. Lab streptococc us group B, culture, unspecified specimen 2023 024 [employer] [facility], [address] [place] [address], [facility] [address] [place], [address], 5 08:55:28 Referral None recorded. Procedures staple removal (PROC) 2024 025 [facility], [address] [facility], [address], [place], [address], 5 08:14:21 Surgeries None recorded. Imaging None recorded. Medication Orders hydrocodone 5 mg-acetamin ophen 325 mg tablet 2024 025 [facility], [address], [place], [address], 5 15:56:32 famotidine 20 mg tablet 2023 025 [facility], [address], [address], 15:12:39 escitalopra m 20 mg tablet 2023 024 [facility], [address] [facility] [address], [place], [address], 15:52:54 Patient TargetsNo targets recorded. Patient InstructionsNo instructions recorded. Reason for Referral None Reported. Results Created Date Observation Date Name Description Value Unit Range Abnormal Flag Note LastModifiedBy Organization Detail LastModifiedTime 08/21/2008/21/2024 CBC WBC 18.2 x10 4.0-10 .5 high Not Available [facility] [address] [address], [place], [address], 08/21/2024 12:53:25 08/21/20 24 08/21/2024 CBC RBC 4.54 x10 3.50-5 .50 Not Available [facility] [address] [address], [place], [address], 08/21/2024 12:53:25 08/21/20 24 08/21/2024 CBC HGB 11.1 g/dL 12.0-1 6.0 low Not Available [facility] [address] [facility] 1, [place], [address], 08/21/2024 12:53:25 08/21/20 24 08/21/2024 CBC HCT 32.5 % 37.0-4 7.0 low Not Available [facility] [address] [facility] [address], [place], [address], 08/21/2024 12:53:25 08/21/20 24 08/21/2024 CBC MCV 71.6 fL 80.0-9 9.9 low Not Available [facility] [address] [facility], [place], [address], 08/21/2024 12:53:25 08/21/20 24 08/21/2024 CBC MCH 24.5 pg 27.0-3 2.0 low Not Available [facility] [address] [facility], [place], [address], 08/21/2024 12:53:25 08/21/20 24 08/21/2024 CBC MCHC 34.3 g/dL 32.0-3 6.0 Not Available [facility] [address] [place] [facility] 1, [place], [address], 08/21/2024 12:53:25 08/21/20 24 08/21/2024 CBC RDW 15.4 % 11.5-1 4.5 high Not Available [facility] [address] [address], [place], [address], 08/21/2024 12:53:25 08/21/20 24 08/21/2024 CBC plt 163.1 x10 140.0- 451.0 Not Available [facility] [address] [facility] 1, [place], [address], 08/21/2024 12:53:25 08/21/20 24 08/21/2024 CBC lymphocytes % 8.3 % 20.0-5 0.0 low Not Available [facility] [address] [facility] 1, [place], [address], 08/21/2024 12:53:25 08/21/20 24 08/21/2024 CBC granulcytes % 83.3 % 30.0-7 0.0 high Not Available [facility] [address] [place] [facility] 1, [place], [address], 08/21/2024 12:53:25 08/21/20 24 08/21/2024 CBC monocytes % 5.6 % 2.0-16 .0 Not Available [facility] [address] [place] [facility] 1, [place], [address], 08/21/2024 12:53:25 08/21/20 24 08/21/2024 CBC granulcytes# 15.2 x10 Not Nory ilable [facility] [address] [facility] [place] [address], [place], [address], 08/21/2024 12:53:25 08/21/20 24 08/21/2024 CBC lymphocytes # 1.5 x10 Not Available [facility] [address] [place] [facility] 1, [place], [address], 08/21/2024 12:53:25 08/21/20 24 08/21/2024 CBC monocytes # 1.0 x10 Not Avai lable [facility] [address] [facility] 1, [place], [address], 08/21/2024 12:53:25 08/21/20 24 08/21/2024 GLUCO SE SCREE N glucose screen 146.0 mg/dL Not Available [facility] [address] [facility] 1, [place], [address], 08/21/2024 14:10:31 09/04/20 24 09/04/2024 CBC WBC 18.3 x10 4.0-10 .5 high Not Available [facility] [address] [facility] [place] [address], [place], [address], 09/04/2024 10:41:10 09/04/20 24 09/04/2024 CBC RBC 4.60 x10 3.50-5 .50 Not Available [place] [facility] [address] [place] [address], [place], [address], 09/04/2024 10:41:10 09/04/20 24 09/04/2024 CBC HGB 10.4 g/dL 12.0-1 6.0 low Not Available [facility] [address] [place] [facility] 1, [place], [address], 09/04/2024 10:41:10 09/04/20 24 09/04/2024 CBC HCT 32.0 % 37.0-4 7.0 low Not Available [facility] [address] [place] [place] [facility] 1, [place], [address], 09/04/2024 10:41:10 09/04/20 24 09/04/2024 CBC MCV 69.6 fL 80.0-9 9.9 low Not Available [facility] [address] [place] [place] [facility] 1, [place], [address], 09/04/2024 10:41:10 09/04/20 24 09/04/2024 CBC MCH 22.7 pg 27.0-3 2.0 low Not Available [facility] [address] [place] [place] [facility] 1, [place], [address], 09/04/2024 10:41:10 09/04/20 24 09/04/2024 CBC MCHC 32.6 g/dL 32.0-3 6.0 Not Available [facility] [address] [facility] 1, [place], [address], 09/04/2024 10:41:10 09/04/20 24 09/04/2024 CBC RDW 16.5 % 11.5-1 4.5 high Not Available [facility] [address] [facility] 1, [place], [address], 09/04/2024 10:41:10 09/04/20 24 09/04/2024 CBC plt 178.6 x10 140.0- 451.0 Not Available [facility] [address] [place] [place] [facility] 1, [place], [address], 09/04/2024 10:41:10 09/04/20 24 09/04/2024 CBC lymphocytes % 9.7 % 20.0-5 0.0 low Not Available [facility] [address] [address], [place], [address], 09/04/2024 10:41:10 09/04/20 24 09/04/2024 CBC granulcytes % 81.9 % 30.0-7 0.0 high Not Available [facility] [address] [address], [place], [address], 09/04/2024 10:41:10 09/04/20 24 09/04/2024 CBC monocytes % 5.9 % 2.0-16 .0 Not Available [facility] [address], [address], 09/04/2024 10:41:10 09/04/20 24 09/04/2024 CBC granulcytes# 15.0 x10 Not Nory ilable [facility] [address], [address], 09/04/2024 10:41:10 09/04/20 24 09/04/2024 CBC lymphocytes # 1.8 x10 Not Available [facility] [address], [address], 09/04/2024 10:41:10 09/04/20 24 09/04/2024 CBC monocytes # 1.1 x10 Not Avai lable [facility] [address], [address], 09/04/2024 10:41:10 09/04/20 24 09/04/2024 gluco se zahira ance test, 3-jere r Fasting 88 Not Available [facility] ([facility]) [address] [place], [address], 09/04/2024 15:17:41 09/04/20 24 09/04/2024 gluco se zahira ance test, 3-jere r 1 hour 199 Not Available [facility] ([facility]) [address] [place], [address], 09/04/2024 15:17:41 09/04/20 24 09/04/2024 gluco se zahira ance test, 3-jere r 2 hour 152 Not Available [facility] ([facility]) [address] [place], [address], 09/04/2024 15:17:41 09/04/20 24 09/04/2024 gluco se zahira ance test, 3-jere r 3 hour 59 Not Available [facility] ([facility]) [address] [place], [address], 09/04/2024 15:17:41 10/02/20 24 10/05/2024 STREP TOCOC CUS, GROUP B CULTU RE streptococcu s, group B culture SEE NOTE STREP TOCOC CUS, GROUP B CULTU RE Micro Numbe r: [id number] Test Statu s: Final Speci men Sourc e: Vagin al/an orect al Speci men Quali ty: Adequ ate Resul t: No group B Strep tococ cus isola ling Note per CDC guide lines optim al recov ezio is achie joann by swabb ing both the lower vagin a and rectu m (thro ugh the anal sphin cter) . Not Available [facility] [address] [place], [address], 10/05/2024 08:55:28 Result Notes None recorded. Problems Name Problem SNOMED Code Status Onset Date Resolution Date Notes Provider Name and Address Organization Details Recorded Time Transfus ion of whole blood Active 2021 Transfus ion Of Whole Blood; Date: 02/16/20; 07/20/20 22 3:47PM by Kwame Cotter, Office Visit; Promoted ; acuity set as *; Not Available [employer] 3 03:18:09 Pregnanc y 33637544 Completed 202310/31/2024 VINAY ALCAZAR [facility] 5 15:12:00 Normal pregnanc y [facility] 88162093292 4106 Com[facility] 4 15:56:06 [facility] [id number] 4106 Active 2023 [facility] 4 15:56:06 Problem Notes None recorded. Procedures Surgical History Date Name Laterality Status Provider Name and Address Organization Details Recorded Time 10/23/19 25 delivery completed VINAY TURK [facility], [facility] 10/31/2024 15:13:01 02/16/20 22 [facility] 03/28/2024 09:17:32 03/08/20 20 [facility] 03/28/2024 09:17:18 Imaging Results None recorded. Procedure Notes None recorded. Medical Equipment None Reported. Allergies No known drug allergies Medications Name Sig Start Date Stop Date Status Note LastModified by Organization Details LastModified Time buspirone 5 mg tablet TAKE 1 TABLET BY MOUTH THREE TIMES DAILY 03/28 completed Not Available Not Available Not Available ibuprofen 800 mg tablet TAKE 1 TABLET BY MOUTH THREE TIMES DAILY active Not Available Not Available No t Available hydrocodon e 5 mg-acetami nophen 325 mg tablet TAKE 1 TABLET BY MOUTH EVERY 6 HOURS NEEDED active Not Available Not Available No t Available amoxicilli n 500 mg tablet TAKE 1 TABLET BY MOUTH EVERY 12 HOURS FOR 7 DAYS 03/28 completed Not Available Not Available Not Available famotidine 20 mg tablet Take 1 tablet twice a day by oral route. 10/31 completed Not Available Not Available Not Available cephalexin 500 mg capsule TAKE 1 CAPSULE BY MOUTH 4 TIMES DAILY FOR 7 DAYS 03/28 completed Not Available Not Available Not Available Vitamin 27 mg iron-0.8 mg tablet Take 1 tablet every day by oral route. active Not Available Not Available No t Available escitalopr am 10 mg tablet TAKE 1 TABLET BY MOUTH ONCE DAILY 10/02 completed dose change Not Available Not Available Not Available escitalopr am 20 mg tablet Take 1 tablet every day by oral route. 2023 active Not Available Not Available Not Avai lable nitrofuran toin monohydrat e/macrocry stals 100 mg capsule TAKE 1 CAPSULE BY MOUTH EVERY 12 HOURS FOR 7 DAYS 06/12 completed Not Available Not Available Not Available amoxicilli n 1 BID 08/07 completed Not Available Not Available Not Available FeroSul 325 mg (65 mg iron) tablet TAKE 1 TABLET BY MOUTH ONCE DAILY active Not Available Not Available No t Available Paxlovid 300 mg (150 mg x 2)-100 mg tablets in a dose pack TAKE 3 TABLETS TOGETHER (TWO 150 MG NIRMATRE LVIR TABLETS AND ONE 100 MG RITONAVI R TABLET) BY MOUTH TWICE DAILY FOR 5 DAYS. 03/28 completed Not Available Not Available Not Available Vitals Date Recorded Body height Body mass index (BMI) Body weight Oxygen saturation Oxygen saturation in Arterial blood by Pulse oximetry Heart rate Respiratory rate Body temperature Systolic blood pressure Diastolic blood pressure Provider Name and Address Organization Details Last Updated DateTime 5 175.26 cm 30.8 kg/m2 25986.0 33541 g 99 % 99 % 99 /min 18 /min 98.1 [degF] 120 mm[Hg] 74 mm[Hg] VINAY COLBERT [facility] 5 11:07:48 Date Recorded Body height Body mass index (BMI) Body weight Respiratory rate Oxygen saturation Oxygen saturation in Arterial blood by Pulse oximetry Heart rate Body temperature Systolic blood pressure Diastolic blood pressure Provider Name and Address Organization Details Last Updated DateTime 5 175.26 cm 31.5 kg/m2 09159.5 7 g 18 /min 98 % 98 % 90 /min 97.6 [degF] 134 mm[Hg] 86 mm[Hg] FRANKLIN KHAN [facility] 5 09:34:34 Date Recorded Body height Body mass index (BMI) Body weight Oxygen saturation Oxygen saturation in Arterial blood by Pulse oximetry Heart rate Respiratory rate Body temperature Systolic blood pressure Diastolic blood pressure Provider Name and Address Organization Details Last Updated DateTime 5 175.26 cm 30.1 kg/m2 17156.5 4 g 98 % 98 % 100 /min 20 /min 98.1 [degF] 140 mm[Hg] 84 mm[Hg] VINAY COLBERT [facility] 5 15:19:05 Date Recorded Body height Body mass index (BMI) Body weight Oxygen saturation Oxygen saturation in Arterial blood by Pulse oximetry Heart rate Respiratory rate Body temperature Systolic blood pressure Diastolic blood pressure Provider Name and Address Organization Details Last Updated DateTime 4 175.26 cm 30.5 kg/m2 71431.4 3 g 98 % 98 % 112 /min 18 /min 98 [degF] 122 mm[Hg] 60 mm[Hg] VINAY COLBERT [facility] 4 15:22:28 Date Recorded Body height Body mass index (BMI) Body weight Respiratory rate Body temperature Heart rate Oxygen saturation Oxygen saturation in Arterial blood by Pulse oximetry Systolic blood pressure Diastolic blood pressure Provider Name and Address Organization Details Last Updated DateTime 4 175.26 cm 30.8 kg/m2 42202.6 1 g 18 /min 98 [degF] 98 /min 99 % 99 % 110 mm[Hg] 66 mm[Hg] FRANKLIN KHAN [facility] 4 11:02:28 Social History Question Answer Notes LastModified by Organizat ion Details LastModified Time Tobacco Smoking Status Never Smoker FRANKLIN hammond [facility] 03/28/2024 09:16:57 What Is Your Relationship Status? [email or web address] Information not available 03/28/2024 Sex: Unknown Functional Status Question Answer Note LastModified by Organizat ion Details LastModified Time Do you use any illicit or recreational drugs? No [place] [address] Information not available 03/28/2024 What is your level of alcohol consumption? None [place] [address] Information not available 03/28/2024 Do you or have you ever used any nicotine-free cigarettes, vape, or chewing tobacco? No [place] [address] Information not available 03/28/2024 Mental Status None recorded. Family History Nothing Reported Notes:None Medical History No medical history recorded. Gynecological History Statement/Question Response Date of LMP 01/24/2024 LMP Definite Obstetrics History GPAL:G 3 P 3 0 0 3 Type Value Full Term 3 Living 3 Total 3 Immunizations Vaccine Type Date Status Note Provider Nam e and Address Organization Details Recorded Time IPV 5 completed FRANKLIN hammond [facility] 03/28/2024 09:12:30 IPV 5 [facility] 03/28/2024 09:12:30 IPV 0 completed FRANKLIN hammond, [facility] 03/28/2024 09:12:30 IPV 4 completed FRANKLIN hammond [facility] 03/28/2024 09:12:30 MMR 4 completed FRANKLIN KHAN null [facility] 03/28/2024 09:12:30 MMR 4 completed FRANKLIN KHAN null [facility] 03/28/2024 09:12:30 Tdap 5 completed FRANKLIN hammond [facility] 03/28/2024 09:12:30 varicella 5 completed FRANKLIN hammond [facility] 03/28/2024 09:12:30 Hep B, adolescent or pediatric 5 completed FRANKLIN KHAN null, [facility] 03/28/2024 09:12:30 Hep B, adolescent or pediatric 0 completed FRANKLIN ARORAY null, [facility] 03/28/2024 09:12:30 Hep B, adolescent or pediatric 4 completed FRANKLINANIYAH ARORAY null, [facility] 03/28/2024 09:12:30 meningococcal MCV4P 8 completed FRANKLIN KHAN null, [facility] 03/28/2024 09:12:30 DTaP 5 completed FRANKLIN ARORAY null [facility] 03/28/2024 09:12:30 DTaP 5 completed FRANKLINANIYAH ARORAY null, [facility] 03/28/2024 09:12:30 DTaP 0 completed FRANKLIN KHAN null, [facility] 03/28/2024 09:12:30 DTaP 4 completed FRANKLIN KHAN null, [facility] 03/28/2024 09:12:31 Influenza, split virus, quadrivalent, PF 0 completed FRANKLIN ARORAY null, [facility] 03/28/2024 09:12:31 Past Encounters Encounter ID Performer Location Encounter Start Date Encounter Closed Date Diagnosis/Indication Diagnosis SNOMED-CT Code Diagnosis ICD10 Code Diagnosis Note [id number] Tristan Spears MD [facility] ([facility]) [address] [place] [phone] 03/28/2024 09:02:46 03/28/2024 09:55:37 Normal in multigravida 8543193223 47797 Z34.81 Gestation period, 9 weeks 602161 Z3A.09 [id number] Tristan Spears MD [facility] ([facility]) [address] [place] [id number] 05/15/2024 09:54:39 05/15/2024 10:53:04 Normal in multigravida 4349227777 09770 Z34.82 Gestation period, 15 weeks 9375583 Z3A.15 Past pregn kenan history of section 101511258 Z98.410 [id number] Tristan Spears MD [facility] ([facility]) [address] [place] [address] [id number] 06/12/2024 15:33:04 06/12/2024 17:12:48 Normal in multigravida 8743246292 96610 Z34.82 Gestation period, 20 weeks 61269314 Z3A.20 Low lying placenta 82871 2006 O44.42 [id number] Tristan Spears MD [facility] ([facility]) [address] [place] [address] [id number] 06/12/2024 13:41:23 06/13/2024 15:08:13 [id number] Tristan Spears MD [facility] ([facility]) [address] [place] [address] [id number] 07/03/2024 16:46:27 07/03/2024 17:46:00 Normal in multigravida 1615295987 03034 Z34.82 Gestation period, 23 weeks 28653119 Z3A.23 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 [id number] Tristan Spears MD [facility] ([facility]) [address] [place] [address] [id number] 07/24/2024 09:40:29 07/24/2024 10:27:28 Normal in multigravida 9142590006 10765 Z34.82 Gestation period, 26 weeks 82371815 Z3A.26 [id number] Tristan Spears MD [facility] ([facility]) [address] [place] [address] [id number] 08/07/2024 09:40:30 08/08/2024 10:59:40 [id number] Tristan Spears MD [facility] ([facility]) [address] [place] [address] [id number] 08/07/2024 10:33:21 08/11/2024 11:32:18 Normal in multigravida 2299935342 65661 Z34.82 Gestation period, 28 weeks 25779046 Z3A.28 [id number] Tristan Spears MD [facility] ([facility]) [address] [place] [address] [id number] 08/15/2024 12:07:28 08/15/2024 14:34:59 26846921 Z33.1 Normal pre gnancy in multigravida 5643444308 43137 Z34.83 Dizziness 200571364 R42 [id number] Tristan Spears MD [facility]) [address] [place] [address] [id number] 08/21/2024 11:38:59 08/23/2024 04:05:57 [id number] Tristan Spears MD [facility] ([facility]) [address] [place] [address] [id number] 08/21/2024 12:49:08 08/21/2024 14:11:26 Normal in multigravida 1253051745 76604 Z34.83 Gestation period, 30 weeks 76502823 Z3A.30 Leukocytosis 150289819 D 72.904 [id number] Tristan Spears MD [facility] ([facility]) [address] [place] [address] [id number] 09/04/2024 10:22:53 09/04/2024 14:16:22 Normal in multigravida 8189008244 03956 Z34.83 Gestation period, 32 weeks 1356887 Z3A.32 [id number] Tristan Spears MD [facility] ([facility]) [address] [place] [address] [id number] 09/18/2024 14:48:23 09/18/2024 16:38:35 Normal in multigravida 9089638072 30460 Z34.83 Gestation period, 34 weeks 09675892 Z3A.34 Heartburn 95509891 R12 Mixed anxi ety and depressive disorder 975374855 F41.8 [id number] Tristan Spears MD [facility] ([facility]) [address] [place] [address] [id number] 10/02/2024 10:42:10 10/02/2024 13:08:49 Normal in multigravida 2232679490 66761 Z34.83 Gestation period, 36 weeks 45717094 Z3A.36 [id number] Tristan Spears MD [facility] ([facility]) [address] [place] [address] [id number] 10/09/2024 10:50:43 10/09/2024 14:57:32 Normal in multigravida 2353749696 18887 Z34.83 Gestation period, 37 weeks 92003049 Z3A.37 [id number] Tristan Spears MD [facility] ([facility]) [address] [place] [address] [id number] 10/16/2024 09:25:25 10/16/2024 10:27:57 Normal in multigravida 8099755853 64623 Z34.83 Gestation period, 38 weeks 13291522 Z3A.38 [id number] Tristan Spears MD [facility] ([facility]) [address] [place] [address] [id number] 10/31/2024 14:51:49 10/31/2024 17:57:21 Postoperative visit 972199061 Z48.89 Health Concerns Section Related Observation LastModified by Organization Detai ls LastModified Time None Recorded Concern Status LastModified by Organization Details LastModified Time None Recorded Advance Directives Directive None Recorded Payers Insurance Date Sequence Insurance Name Policy Number Policy Bullock Covered Member ID Bullock Member ID Guarantor Name 03/02/2025 1 [employer] [place] (MEDICA[place] REPLACEMENT - HMO) [id number] Linnette Garay [id number] Linnette Garay Notes Date Note Type Note Provider Name and Address Organization Details Recorded Time 09/18/2024 text/html jr ob routineRep orted bypatient.Associated Symptoms:no abdominal pain; normal movement; no bleeding; no vaginal discharge; no vaginal/vulvar itching or irritation; no dysuria; no frequency; no fever; no emesis; no constipation; no diarrhea/loose stool; no visual changes;cramping;cont ractions(irr);nausea; edema(hands, face,feet);headache;d izziness;breathlessne ssNotes:heartburn, low back pain radiates down left leg, occasional vaginal pressure, pelvic painDenies any tobacco, alcohol, or drug use Tristan Spears MD [address] [place] [address], [phone], [facility] 09/20/2024 07:55:31 10/02/2024 text/html ob routineRep orted bypatient.Associated Symptoms:no abdominal pain; normal movement; no bleeding; no vaginal discharge; no vaginal/vulvar itching or irritation; no dysuria; no frequency; no fever; no emesis; no constipation; no diarrhea/loose stool; no visual changes; no dizziness;cramping;co ntractions(irregular) ;nausea;edema(hands, face,feet);headache;b reathlessnessNotes:he artburn, low back pain radiates down left leg, vaginal pressure, pelvic painDenies any tobacco, alcohol, or drug use Tristan Spears MD [address] [place] [address], [phone], [facility] 10/12/2024 12:29:54 10/09/2024 text/html ob routineRep orted bypatient.Associated Symptoms:normal movement; no bleeding; no vaginal discharge; no vaginal/vulvar itching or irritation; no dysuria; no frequency; no fever; no emesis; no constipation; no diarrhea/loose stool; no visual changes;abdominal pain;cramping;contrac tions(irregular);naus ea;edema(hands, face,feet);headache;d izziness;breathlessne ssNotes:heartburn, low back pain radiates down left leg, vaginal pressure, pelvic painDenies any tobacco, alcohol, or drug use Tristan Spears MD [address] [place] [address], [phone], [facility] 10/09/2024 11:37:54 10/16/2024 text/html jr ob routineRep orted bypatient.Associated Symptoms:normal movement; no bleeding; no vaginal discharge; no vaginal/vulvar itching or irritation; no dysuria; no frequency; no fever; no emesis; no constipation; no visual changes;abdominal pain;cramping;contrac tions(irregular);naus ea;diarrhea/loose stool;edema(hands, feet);headache;dizzin essNotes:heartburn, low back pain radiates down left leg, vaginal pressure, pelvic painDenies any tobacco, alcohol, or drug use Tristan Spears MD [address] [place] [address], [phone], [facility] 10/16/2024 10:25:44 10/31/2024 text/html jr post c-sectio n or tubalReported bypatient.Onset/Timin g:date of surgery: (10/23/24) Quality:procedure: (repeat ) Associated Symptoms:incision healing well; normal appetite; no fever;constipation;pa in not improving;pain 8/10 Pt states she is having moderate to severe headaches and her feet/ legs are swollen left is worse Tristan Spears MD [address] [place] [address], [phone], [facility] 11/21/2024 16:26:11 OBGyn Episode Ob Episode Information Episode Created Date Number of Fetuses Patient Bloodtype Patient rh Status Prepregnancy Weight lbs Domestic Partner Domestic Partner Phone Father Name [employer] Supervisor Status 03/28/20 24 1 CLOSED Fetus Data First Name Last Name Admitted to NICU Weight (g) Sex Living Outcome Pediatric Complications Fetus ID Race Codes Race Delivery Type 3203.26 6704 F Full Term 4903 Yessenia Calculation Initial Yessenia Date Initial Exam Date Initial Exam Provider Initial Ultrasound Date Last Menstrual Period Date Ultra Sound Weeks Gestation 0 Eighteen To Twenty Week Yessenia Update Ultra Sound Date Fundal Height At Umbil Quickening Date Ultra Sound Latest Weeks Gestation Final Yessenia Confirmed By Final Yessenia Confirmed Date Final Yessenia Date Ultra Sound Latest Days Gestation 0 0 Menstrual History Last Menstrual Date Menses Monthly On Bcp Conception Prior Menses Frequency Hcg Plus Date Menarche Onset Age Delivery Information Delivery Date Delivery Type Labor Anesthesia Weeks Gestation Incision Type Labor Labor Length Hrs Delivered By Post Complications Tubal Sterilization Discharge Date Comments 0 [facility] false pre eclampsia , GDM Discharge Information Feeding Method Contraceptive Method Maternal HG B and HCT Levels Ob Episode Information Episode Created Date Number of Fetuses Patient Bloodtype Patient rh Status Prepregnancy Weight lbs Domestic Partner Domestic Partner Phone Father Name [employer] Supervisor Status 03/28/20 24 1 CLOSED Fetus Data First Name Last Name Admitted to NICU Weight (g) Sex Living Outcome Pediatric Complications Fetus ID Race Codes Race Delivery Type 3770.25 6704 F Full Term 4904 Yessenia Calculation Initial Yessenia Date Initial Exam Date Initial Exam Provider Initial Ultrasound Date Last Menstrual Period Date Ultra Sound Weeks Gestation 0 Eighteen To Twenty Week Yessenia Update Ultra Sound Date Fundal Height At Umbil Quickening Date Ultra Sound Latest Weeks Gestation Final Yessenia Confirmed By Final Yessenia Confirmed Date Final Yessenia Date Ultra Sound Latest Days Gestation 0 0 Menstrual History Last Menstrual Date Menses Monthly On Bcp Conception Prior Menses Frequency Hcg Plus Date Menarche Onset Age Delivery Information Delivery Date Delivery Type Labor Anesthesia Weeks Gestation Incision Type Labor Labor Length Hrs Delivered By Post Complications Tubal Sterilization Discharge Date Comments 2 [facility] 39 Discharge Information Feeding Method Contraceptive Method Maternal HG B and HCT Levels Ob Episode Information Episode Created Date Number of Fetuses Patient Bloodtype Patient rh Status Prepregnancy Weight lbs Domestic Partner Domestic Partner Phone Father Name [employer] Supervisor Status 03/28/20 24 1 A Positive William CLOSED Fetus Data First Name Last Name Admitted to NICU Weight (g) Sex Living Outcome Pediatric Complications Fetus ID Race Codes Race Delivery Type 3401.94 F true Full Term 4905 Problems Problem Notes repeat ltcsLow-lying placent a @ 20wk u/sC-section 10/23/24 Problem Name Start Date End Date Resolution Snomed Code Not e Normal in multigravida 05/07/2024 [id number] Yessenia Calculation Initial Yessenia Date Initial Exam Date Initial Exam Provider Initial Ultrasound Date Last Menstrual Period Date Ultra Sound Weeks Gestation 10/30/2024 03/28/2024 01/24/2024 0 Eighteen To Twenty Week Yessenia Update Ultra Sound Date Fundal Height At Umbil Quickening Date Ultra Sound Latest Weeks Gestation Final Yessenia Confirmed By Final Yessenia Confirmed Date Final Yessenia Date Ultra Sound Latest Days Gestation 0 10/30/19 25 0 Pre- Flowsheet Flowsheet Date 03/28/2024 Hannon Score Blood Edema Fundus Height Fundus Units Glucose Ketones Leukocytes Nitrite Labor Signs Protein Cervic Dilation Cervic Effacement Cervic Station Type Weight in lbs Pre/Post Dialysis Refused Weight 159.384903712916 BP Diastolic BP Location Tested BP Systolic BP Type 74 118 Fetus Heart Rate Present Fetus Movement A No Comments OBI- nausea and vomiting, fa tigue Flowsheet Date 05/15/2024 Hannon Score Blood Edema Fundus Height Fundus Units Glucose Ketones Leukocytes Nitrite Labor Signs Protein Cervic Dilation Cervic Effacement Cervic Station Type Weight in lbs Pre/Post Dialysis Refused Weight 158.221766231261 BP Diastolic BP Location Tested BP Systolic BP Type 64 L arm 104 sitting Fetus Heart Rate Present A 164 Present Fetus Movement A No Comments NOB- nausea, abd pain and cr amps, headaches, dizziness Flowsheet Date 06/12/2024 Hannon Score Blood Edema Fundus Height Fundus Units Glucose Ketones Leukocytes Nitrite Labor Signs Protein Cervic Dilation Cervic Effacement Cervic Station Type Weight in lbs Pre/Post Dialysis Refused BP Diastolic BP Location Tested BP Systolic BP Type Fetus Heart Rate Present Fetus Movement Comments Flowsheet Date 06/12/2024 Hannon Score Blood Edema Fundus Height Fundus Units Glucose Ketones Leukocytes Nitrite Labor Signs Protein Cervic Dilation Cervic Effacement Cervic Station none neg Type Weight in lbs Pre/Post Dialysis Refused 165.854911512061 BP Diastolic BP Location Tested BP Systolic BP Type 76 128 Fetus Heart Rate Present A 156 Present Fetus Movement A Yes Comments headaches,dizziness, fatigue , Flowsheet Date 06/15/2024 Hannon Score Blood Edema Fundus Height Fundus Units Glucose Ketones Leukocytes Nitrite Labor Signs Protein Cervic Dilation Cervic Effacement Cervic Station Type Weight in lbs Pre/Post Dialysis Refused BP Diastolic BP Location Tested BP Systolic BP Type Fetus Heart Rate Present Fetus Movement Comments u/s on 06/12/24, EGA 19.1, ED D 11/05/24, Breech, placenta Low-lying, unremarkable, no subchorionic bleed, anatomic screen normal. Flowsheet Date 06/20/2024 Hannon Score Blood Edema Fundus Height Fundus Units Glucose Ketones Leukocytes Nitrite Labor Signs Protein Cervic Dilation Cervic Effacement Cervic Station Type Weight in lbs Pre/Post Dialysis Refused BP Diastolic BP Location Tested BP Systolic BP Type Fetus Heart Rate Present Fetus Movement Comments Healthy Blue RA complete Flowsheet Date 07/03/2024 Hannon Score Blood Edema Fundus Height Fundus Units Glucose Ketones Leukocytes Nitrite Labor Signs Protein Cervic Dilation Cervic Effacement Cervic Station none none Negative trace 0cm 0% -4 Type Weight in lbs Pre/Post Dialysis Refused 173.447215913844 BP Diastolic BP Location Tested BP Systolic BP Type 68 110 sitting Fetus Heart Rate Present A 146 Present Fetus Movement A Yes Comments abdominal pain/cramping, vag inal pressure, headache, dizziness Flowsheet Date 07/24/2024 Hannon Score Blood Edema Fundus Height Fundus Units Glucose Ketones Leukocytes Nitrite Labor Signs Protein Cervic Dilation Cervic Effacement Cervic Station 24.5 cm none 2+ Positive 1+ Type Weight in lbs Pre/Post Dialysis Refused 181.000715256933 BP Diastolic BP Location Tested BP Systolic BP Type 68 114 Fetus Heart Rate Present A 144 Present Fetus Movement A Yes Comments abd pain,cramps; headache,di zziness, nausea, swelling hands,heartburn, back pain radiates down leg Flowsheet Date 08/07/2024 Hannon Score Blood Edema Fundus Height Fundus Units Glucose Ketones Leukocytes Nitrite Labor Signs Protein Cervic Dilation Cervic Effacement Cervic Station Type Weight in lbs Pre/Post Dialysis Refused BP Diastolic BP Location Tested BP Systolic BP Type Fetus Heart Rate Present Fetus Movement Comments Flowsheet Date 08/07/2024 Hannon Score Blood Edema Fundus Height Fundus Units Glucose Ketones Leukocytes Nitrite Labor Signs Protein Cervic Dilation Cervic Effacement Cervic Station 28 cm none 2+ neg Type Weight in lbs Pre/Post Dialysis Refused 187.029248790115 BP Diastolic BP Location Tested BP Systolic BP Type 70 116 Fetus Heart Rate Present A 164 Present Fetus Movement A Yes Comments cramping, nausea, swelling h ands and feet, headaches, dizziness, heartburn, back pain radiates down lt leg Flowsheet Date 08/10/2024 Hannon Score Blood Edema Fundus Height Fundus Units Glucose Ketones Leukocytes Nitrite Labor Signs Protein Cervic Dilation Cervic Effacement Cervic Station Type Weight in lbs Pre/Post Dialysis Refused BP Diastolic BP Location Tested BP Systolic BP Type Fetus Heart Rate Present Fetus Movement Comments u/s on 08/07/24, YESSENIA 11/04/24, EGA 27.2, Placenta is 5.4cm from cervical os, no longer meets criteria for low lying or previa. Flowsheet Date 08/15/2024 Hannon Score Blood Edema Fundus Height Fundus Units Glucose Ketones Leukocytes Nitrite Labor Signs Protein Cervic Dilation Cervic Effacement Cervic Station 29 cm none 2+ Positive neg Type Weight in lbs Pre/Post Dialysis Refused Weight 192.074232914834 BP Diastolic BP Location Tested BP Systolic BP Type 62 110 sitting Fetus Heart Rate Present A 156 Present Fetus Movement A Yes Comments Edema to face/hands, heartbu rn, low back pain radiating doen left leg,headache, dizziness, intermittent cramping, pt will do glucose screen on 08/21/24 Flowsheet Date 08/21/2024 Hannon Score Blood Edema Fundus Height Fundus Units Glucose Ketones Leukocytes Nitrite Labor Signs Protein Cervic Dilation Cervic Effacement Cervic Station Type Weight in lbs Pre/Post Dialysis Refused BP Diastolic BP Location Tested BP Systolic BP Type Fetus Heart Rate Present Fetus Movement Comments Flowsheet Date 08/21/2024 Hannon Score Blood Edema Fundus Height Fundus Units Glucose Ketones Leukocytes Nitrite Labor Signs Protein Cervic Dilation Cervic Effacement Cervic Station none trace Positive trace Type Weight in lbs Pre/Post Dialysis Refused Weight 192.344350945232 BP Diastolic BP Location Tested BP Systolic BP Type 64 122 Fetus Heart Rate Present A 156 Present Fetus Movement A Yes Comments cramps, nausea, swelling arellano ds and feet, heartburn Flowsheet Date 09/04/2024 Hannon Score Blood Edema Fundus Height Fundus Units Glucose Ketones Leukocytes Nitrite Labor Signs Protein Cervic Dilation Cervic Effacement Cervic Station 31 cm none 2+ Positive trace Type Weight in lbs Pre/Post Dialysis Refused Weight 198.987208008381 BP Diastolic BP Location Tested BP Systolic BP Type 68 124 Fetus Heart Rate Present A 144 Present Fetus Movement A Yes Comments pelvic pain, nausea, swellin g, heartburn, cramps, Flowsheet Date 09/18/2024 Hannon Score Blood Edema Fundus Height Fundus Units Glucose Ketones Leukocytes Nitrite Labor Signs Protein Cervic Dilation Cervic Effacement Cervic Station 33 cm none 1+ Positive neg Type Weight in lbs Pre/Post Dialysis Refused Weight 206.948561459863 BP Diastolic BP Location Tested BP Systolic BP Type 60 122 sitting Fetus Heart Rate Present A 158 Present Fetus Movement A Yes Comments pelvic pain, low back pain, vaginal pressure, headache, dizziness,sob, cramping, nausea, heartburn, edema face/hands/feet, Flowsheet Date 09/19/2024 Hannon Score Blood Edema Fundus Height Fundus Units Glucose Ketones Leukocytes Nitrite Labor Signs Protein Cervic Dilation Cervic Effacement Cervic Station Type Weight in lbs Pre/Post Dialysis Refused BP Diastolic BP Location Tested BP Systolic BP Type Fetus Heart Rate Present Fetus Movement Comments Epidural consult-10/16/24, C- section 10/23/24, pt is aware, OR contact-tj, OB- Kiana, CS-Jessica Flowsheet Date 10/02/2024 Hannon Score Blood Edema Fundus Height Fundus Units Glucose Ketones Leukocytes Nitrite Labor Signs Protein Cervic Dilation Cervic Effacement Cervic Station 36 cm none 1+ Positive [place] trace Type Weight in lbs Pre/Post Dialysis Refused Weight 208.546283625158 BP Diastolic BP Location Tested BP Systolic BP Type 66 110 Fetus Heart Rate Present A 128 Present Fetus Movement A Yes Comments group b strep collectedswell ing, vaginal pressure, pelvic pain, headaches, nausea, low back pain, heartburn Flowsheet Date 10/08/2024 Hannon Score Blood Edema Fundus Height Fundus Units Glucose Ketones Leukocytes Nitrite Labor Signs Protein Cervic Dilation Cervic Effacement Cervic Station Type Weight in lbs Pre/Post Dialysis Refused BP Diastolic BP Location Tested BP Systolic BP Type Fetus Heart Rate Present Fetus Movement Comments group B NegativeOB records s ent Flowsheet Date 10/09/2024 Hannon Score Blood Edema Fundus Height Fundus Units Glucose Ketones Leukocytes Nitrite Labor Signs Protein Cervic Dilation Cervic Effacement Cervic Station 36 cm none 1+ Positive trace Type Weight in lbs Pre/Post Dialysis Refused 208.115563021026 BP Diastolic BP Location Tested BP Systolic BP Type 74 120 sitting Fetus Heart Rate Present A 142 Present Fetus Movement A Yes Comments abd pain/cramping, nausea, h eartburn, low back pain, edena face/hands/feet, headache,dizziness,sob Flowsheet Date 10/16/2024 Hannon Score Blood Edema Fundus Height Fundus Units Glucose Ketones Leukocytes Nitrite Labor Signs Protein Cervic Dilation Cervic Effacement Cervic Station none 2+ Positive [place] trace Type Weight in lbs Pre/Post Dialysis Refused Weight 213.812366011509 BP Diastolic BP Location Tested BP Systolic BP Type 86 134 Fetus Heart Rate Present A 140 Present Fetus Movement A Yes Comments pelvic pain, left side back pain, heartburn, swelling feet/hands, vaginal pressure, abd pain and cramps Flowsheet Date 10/31/2024 Hannon Score Blood Edema Fundus Height Fundus Units Glucose Ketones Leukocytes Nitrite Labor Signs Protein Cervic Dilation Cervic Effacement Cervic Station Type Weight in lbs Pre/Post Dialysis Refused Weight 204.847851115976 BP Diastolic BP Location Tested BP Systolic BP Type 84 140 sitting Fetus Heart Rate Present Fetus Movement Comments Menstrual History Last Menstrual Date Menses Monthly On Bcp Conception Prior Menses Frequency Hcg Plus Date Menarche Onset Age 0401/24/2024 Genetic Screening And Infection History Question Response Note Patient's Age Will Be 35 Years Or Older At Estim ated Date of Delivery false Thalassemia (Turkish, Yi, Mediterranean, Or Background): MCV < 80 false Neural Tube Defect (Meningomyelocele, Spina Bifi da, Or Anencephaly) false Congenital Heart Defect false Down Syndrome false Derek-Sachs (eg, Sabianist, Cajun, Kyrgyz-Zaleski) f alse Jodi Disease false Sickle Cell Disease Or Trait () false Hemophilia Or Other Blood Disorders false Muscular Dystrophy false Cystic Fibrosis false [place]'s Chorea false Intellectual Disability/Autism false If Yes, Was Person Tested For Fragile X? false Other Inherited Genetic Or Chromosomal Disorder false Maternal Metabolic Disorder (eg, Type 1 Diabetes , PKU) false Patient Or Baby's Father Had A Child With Defects Not Listed Above false Recurrent Loss, Or A Stillbirth false Medications (including Suppl ements, Vitamins, Herbs, OTC Drugs), Illicit/Recreational Drugs, Alcohol false If Yes, Agent(s) And Strength/Dosage false Any Other Genetic History false Live With Someone With TB Or Exposed To TB false Patient Or Partner Has History Of Genital Herpes false Rash Or Viral Illness Since Last Menstrual Perio d false History Of STD, Gonorrhea, Chlamydia, HPV, Syphi lis false Other Infection History false History of HIV false History of Hepatitis false Prior GBS-infected child false Hemoglobinopathy Or Carrier false Other Structural Defect false Recent Travel History Outside of Country false Mental Retardation/Autism false Delivery Information Delivery Date Delivery Type Labor Anesthesia Weeks Gestation Incision Type Labor Labor Length Hrs Delivered By Post Complications Tubal Sterilization Discharge Date Comments 5 None 39 false Tristan Spears MD Discharge Information Feeding Method Contraceptive Method Maternal HG B and HCT Levels
--- NOTE | 2025-03-26 19:40 | PC.NURSE ---
this nurse called poison control regarding pts venlafaxine overdose. poison control states the med peaks in 3 hours, the half life is 6 hours, pt is a seizure risk, they recommend giving pt diazepam to prevent seizures, to check a mag level and monitor for bradycardia. this nurse communicated this to Dr. Parmar.
[2025-03-26 19:51] LABS: Basophils # 0.1 10^3/uL (0.0-0.1); Basophils % 0.5 %; Eosinophils # 0.3 10^3/uL (0.0-0.8); Eosinophils % 2.5 %; Hematocrit 33.2 % (36-47); Lymphocytes # 2.4 10^3/uL (0.8-4.8); Lymphocytes % 23.2 %; Mean Corpuscular HGB Conc 29.5 g/dL (30-55); Mean Corpuscular Hemoglobin 19.2 pg (27-33); Mean Platelet Volume 10.7 fL (7.4-10.4); Monocytes # 0.7 10^3/uL (0.2-0.9); Monocytes % 6.9 %; Neutrophils # 6.79 10^3/uL (1.8-7.7); Neutrophils % 66.6 %; Nucleated Red Blood Cells % 0 %; Platelet Count 298 10^3/cmm (157-399); Red Blood Count 5.11 10^6/uL (3.85-5.65); Red Cell Distribution Width 18.9 % (12.1-15.1); White Blood Count 10.18 10^3/uL (3.29-11.43)
--- NOTE | 2025-03-26 19:54 | ECG_ITS ---
[facility] 2025-03[facility]26 Pat Name: Linnette Garay Department: Room: Gender: Female Secretary To Board Of Commissioners: : 2000 Requested By: Michelle Parmar Order Number: [id number] Reading MD: Measurements Intervals [place] Rate: 64 P: 37 IL: 174 QRS: 37 QRSD: 96 T: 46 QT: 387 QTc: 401 Interpretive Statements SINUS RHYTHM POSSIBLE RIGHT VENTRICULAR CONDUCTION DELAY [RSR (QR) IN V1/V2] [email or web address]
[2025-03-26] MEDS: diazePAM 5 mg Tablet PO (20:03)
[2025-03-26 20:04] LABS: HCG Qualitative Urine. Negative (Negative)
[2025-03-26 20:09] LABS: Amphetamines Screen Urine Negative (Negative); Barbiturates Screen Urine Negative (Negative); Benzodiazepines Screen Urine Negative (Negative); Cocaine Screen Urine Negative (Negative); Opiate Screen Urine Negative (Negative); PCP Screen Urine Negative (Negative); THC Screen Urine Positive (Negative)
[2025-03-26 20:09] LABS: Magnesium 1.9 mg/dL (1.7-2.3)
[2025-03-26 20:10] LABS: Alanine Aminotransferase 34 U/L (0-33); Albumin Level 4.7 g/dL (3.5-5.2); Alkaline Phosphatase 103 U/L (35-105); Anion Gap 17.5 (5-19); Aspartate Amino Transferase 31 U/L (0-32); Blood Urea Nitrogen 8 mg/dL (6-20); Calcium 9.8 mg/dL (8.5-10.5); Carbon Dioxide 23 mmol/L (22-29); Chloride 102 mmol/L (98-107); Creatinine Clr Calc Pharmacy 173.4794; Globulin 3.1 g/dL (1.3-4.6); Glomerular Filtration Rate 122.8 mL/min (90-130); Glucose 76 mg/dL (65-115); Osmolality Calculated 285 mOsm/kg (285-295); Potassium 3.5 mmol/L (3.5-5.1); Sodium 139 mmol/L (136-145); Total Bilirubin 0.5 mg/dL (0.15-1.2); Total Protein 7.8 g/dL (6.6-8.7)
[2025-03-26 20:13] LABS: Acetaminophen < 5.0 ug/mL (10-30); Alcohol Level < 10 mg/dL (0-10); Salicylate < 0.3 mg/dL (3-10)
--- NOTE | 2025-03-26 20:45 | PC.NURSE ---
[facility] Pt served with copy of [facility] by this RN and Security. Pt alert and oriented, pleasant and cooperative. All questions answered.
[2025-03-26 21:25] LABS: Influenza A NEGATIVE (Negative); Influenza B NEGATIVE (Negative); Respiratory Syncytial Virus Ce NEGATIVE (Negative); SARS-CoV-2 PCR NEGATIVE (Negative)
[2025-03-26 23:09] VITALS: PULSE 95; RESP 16; O2SAT 98
--- NOTE | 2025-03-27 05:11 | PC.NURSE ---
0500- pt sleeping comfortably in bed at this time. pt in no obvious distress pt with noted even unlabored chest rise and fall. sitter at bedside.
--- NOTE | 2025-03-27 05:11 | PC.NURSE ---
0300- pt sleeping comfortably in bed at this time with noted even chest rise and fall sleeping. pt in no obvious distress. sitter at bedside 1:1 visual.
[2025-03-27 05:30] VITALS: BP 136/87; PULSE 77; RESP 17; TEMP 36.8; O2SAT 100
--- NOTE | 2025-03-27 06:06 | PC.NURSE ---
report called to Elena Centeno Rn @ [facility] in [facility].
--- NOTE | 2025-03-27 07:02 | PC.NURSE ---
assumed [facility] @[phone]
[2025-03-27 11:59] VITALS: BP 123/85; PULSE 71; O2SAT 99
[2025-03-27] MEDS: ondansetron hcl ODT 4 mg Tab PO (12:02)
== END 2025-03-27 12:04 ==
PROVIDERS: Emergency Provider Emergency Medicine; PCP Nurse Practitioner Family
DX: R45.851 Suicidal ideations (principal); Z11.52 Encounter for screening for COVID-19
CPT/HCPCS: 80053; 80306; 80307; 81025; 83735; 85025; 87637; 93005; 99285; J9999; Q0162

== ENCOUNTER 2025-05-07 11:00 | Day surgery (SDC) | payer MEDICAID, SELFPAY ==
[2025-05-07 11:35] VITALS: BP 121/80; PULSE 62; RESP 1; TEMP 36.2; O2SAT 100
--- NOTE | 2025-05-07 12:19 | ANES.PREANE2 ---
Pre-Anesthetic Assessment Height/Weight: Height 1.75 m Temp Pulse Resp BP Pulse Ox O2 Del Method 97.1 F L 62 1 L 121/80 100 Room Air 05/07/25 11:35 05/07/25 11:35 05/07/25 11:35 05/07/25 11:35 05/07/25 11:35 05/07/25 11:35 Operation Date: 05/07/25 12:30 Proposed Procedures p EGD EGD with Biopsy [id number] R12(Not Applicable) - Galindo Light MD Familial anesthetic complications: none Was Beta Juan Manuel taken within 24 hours: N/A Was Clonidine taken within 24 hours: N/A Last intake: Intake Last Liquid Date 05/06/25 Last Liquid Time 21:00 Last Solid Date 05/06/25 Last Solid Time 18:00 Social Tobacco and No alcohol Exam alert and oriented x 3 Airway Submandibular: within normal limits Cervical ROM: within normal limits Mallampati: Class II Dentition: full History/ROS No significant history except as noted GI Gastroesophageal Reflux Disease Neuropsych Depression (previous SI) Anesthetic Plan ASA status: 3 Anesthesia: Anesthesia Evaluation and MAC Risk of > 500 ml blood loss (7ml/kg in children): No Medications/Allergies Home Medications ?Medication ?Instructions ?Recorded ?Confirmed ?Last Taken ?Type escitalopram oxalate 20 mg tablet 20 mg PO DAILY 04/25/25 05/07/25 05/06/25 History (Lexapro) pantoprazole 40 mg tablet,delayed 40 mg PO BID 6 weeks #84 tabs 04/25/25 05/07/25 05/06/25 Rx release (Protonix) Allergies Allergy/AdvReac Type Severity Reaction Status Date / Time bupropion (From Wellbutrin) Allergy ADR-Halluci Verified 05/07/25 11:33 nating Current Medications Generic Name Dose Route Start Last Admin Trade Name Freq PRN Reason Stop Dose Admin Sodium Chloride 1,000 mls @ 15 mls/hr 05/07/25 11:10 05/07/25 11:41 Sodium Chloride 0.9% IV 05/08/25 11:09 15 mls/hr .Q24H PRN Administration COLONOSCOPY FLUIDS PFSH Anesthesia Medical History (Updated 04/25/25 @ 10:40 by Galindo Light MD) History of depression Had depression during first , treated with fluoxetine. History of gestational diabetes GDM in first Surgical History Status post delivery (03/08/20) PLTCS. Dx: NRFHT. Performed by Dr. Daugherty at [facility] [place]. Family History Grandmother Hypertension maternal Denies family history of Colon cancer Ovarian cancer Diabetes Heart disease Hyperlipidemia Breast cancer Family history of thyroid problem Uterine cancer Stroke Social History Smoking and tobacco/nicotine status: never used tobacco/nicotine Substance/Drug Use: never Female Reproductive History Date of last menstrual period: 04/28/25
--- NOTE | 2025-05-07 12:37 | W.PM.OPSFHP ---
Same Day Surgery H&P Indication for Procedure/HPI DATE OF PROCEDURE: May 07, 2025 CHIEF COMPLAINT/INDICATIONFOR SURGICAL PROCEDURE: heartburn PREOP DIAGNOSIS: heartburn PLANNED PROCEDURE: Operation Date: 05/07/25 12:30 Proposed Procedures p EGD EGD with Biopsy [id number] R12(Not Applicable) - Galindo Light MD Medications/Allergies* Home Medications ?Medication ?Instructions ?Recorded ?Confirmed ?Type escitalopram oxalate 20 mg tablet 20 mg PO DAILY 04/25/25 05/07/25 History (Lexapro) Allergies/Adverse Reactions Allergy/AdvReac Type Severity Reaction Status Date / Time bupropion (From Wellbutrin) Allergy ADR-Halluci Verified 05/07/25 11:33 nating Current Medications: Generic Name Dose Route Start Last Admin Trade Name Freq PRN Reason Stop Dose Admin Sodium Chloride 1,000 mls @ 15 mls/hr 05/07/25 11:10 05/07/25 11:41 Sodium Chloride 0.9% IV 05/08/25 11:09 15 mls/hr .Q24H PRN Administration COLONOSCOPY FLUIDS Pertinent History/Comorbid Conditions* Medical History (Updated 04/25/25 @ 10:40 by Galindo Light MD) History of depression Had depression during first , treated with fluoxetine. History of gestational diabetes GDM in first Surgical History (Updated 10/25/24 @ 00:00 by TEA Otero) Status post delivery (03/08/20) PLTCS. Dx: NRFHT. [place]. [place] [facility] Family History (Updated 07/17/21 @ 13:29 by Laney Ackerman LPN) Hypertension Grandmother maternal Denies family history of Colon cancer Ovarian cancer Diabetes Heart disease Hyperlipidemia Breast cancer Family history of thyroid problem Uterine cancer Stroke Social History Smoking and tobacco/nicotine status: never used tobacco/nicotine Substance/Drug Use: never Pertinent Exam Findings alert, oriented x 3, clear to auscultation bilaterally, regular rate & rhythm and procedure specific exam findings abdomen soft, nt, nd Recommendations Risks and benefits of procedure reviewed and Patient/family agree to proceed Surgery/Procedure today Other Plans: EGD Coding Level of Care Code Acute Code for Chg Fwd
[2025-05-07 12:51] VITALS: BP 119/72; PULSE 67; RESP 16; TEMP 36.3; O2SAT 98
[2025-05-07 13:02] VITALS: BP 134/85; PULSE 75; RESP 16; O2SAT 100
--- NOTE | 2025-05-07 13:25 | ANE.PACU2 ---
Inpatient post-anesthesia follow up: Airway intact: Yes Vital signs: Temperature 97.3 F Pulse Rate 75 Respiratory Rate 16 Blood Pressure 134/85 Pulse Oximetry 100 Oxygen Delivery Me thod Room Air Oxygen Flow Rate Fraction of Inspir ed Oxygen Hydration adequate: Yes Nausea and vomiting: No Pain level: 1 Mental status: Baseline
== END 2025-05-07 13:26 | disposition home or self-care (01) ==
PROVIDERS: Anesthesiology; PCP Nurse Practitioner Family; Visit Provider Student in an Organized Health Care Education/Training Program
PROC: 0DJ08ZZ Inspection of Upper Intestinal Tract, Via Natural or Artificial Opening Endoscopic (ICD-10-PCS; principal; 2025-05-07 12:30)
DX: K29.50 Unspecified chronic gastritis without bleeding (principal); K21.9 Gastro-esophageal reflux disease without esophagitis; Z79.899 Other long term (current) drug therapy; Z88.8 Allergy status to other drugs, medicaments and biological substances
CPT/HCPCS: 43239; 88305; 88342; J2704; J7030

== ENCOUNTER → 2025-05-13 11:56 | Outpatient (BNVA) | payer MEDICAID, SELFPAY | PROVIDERS: PCP Nurse Practitioner Family; Visit Provider Nurse Practitioner | DX: Z79.899 Other long term (current) drug therapy (principal) | CPT/HCPCS: 80061; 83036 ==

== ENCOUNTER 2025-05-29 08:01 | Day surgery (SDC) | payer MEDICAID, SELFPAY ==
[2025-05-29] VITALS (14 sets, daily range): BP systolic 120–160; BP diastolic 72–95; PULSE 56–92; RESP 16–17; TEMP 36.2–36.8; O2SAT 96–100; BMI 28.6
[2025-05-29 08:24] LABS: OR HCG Qualitative Urine Negative (Negative)
--- NOTE | 2025-05-29 08:25 | ANES.PREANE2 ---
Pre-Anesthetic Assessment Height/Weight: Height 5 ft 9 in Preop Diagnosis: Biliary dyskinesia Operation Date: 05/29/25 09:30 Proposed Procedures p Laparoscopic Cholecystectomy Lap Veronica 45230 K82.8(Not Applicable) - Galindo Light MD Was Beta Juan Manuel taken within 24 hours: N/A Was Clonidine taken within 24 hours: N/A Social No alcohol and No tobacco Exam alert, oriented x 3, clear to auscultation bilaterally and regular rate & rhythm Airway Submandibular: within normal limits Cervical ROM: within normal limits Mallampati: Class I Dentition: full Anesthetic Plan ASA status: 2 Anesthesia: General Other: No prior issues with anesthesia NPO since yesterday evening Patient was taking Protonix for GERD but this was prior to her being diagnosed with biliary dyskinesia No current symptoms Denies any cardiac or pulmonary issues METs greater than 4 test negative Plan for GETA Medications/Allergies Home Medications ?Medication ?Instructions ?Recorded ?Confirmed ?Last Taken ?Type pantoprazole 40 mg tablet,delayed 40 mg PO BID 6 weeks #84 tabs 04/25/25 05/28/25 05/28/25 Rx release (Protonix) fluoxetine 20 mg capsule (Prozac) 20 mg PO DAILY #30 caps 05/13/25 05/28/25 05/28/25 Rx hydroxyzine HCl 50 mg tablet 50 mg PO BID PRN anxiety #60 tabs 05/13/25 05/28/25 05/28/25 Rx quetiapine 200 mg tablet (Seroquel) 200 mg PO .HS #30 tabs 05/13/25 05/28/25 05/28/25 Rx Allergies Allergy/AdvReac Type Severity Reaction Status Date / Time bupropion (From Wellbutrin) Allergy ADR-Halluci Verified 05/28/25 11:48 [facility] Anesthesia Medical History Generalized anxiety disorder Cannabis dependence PTSD (post-traumatic stress disorder) On combination antipsychotic drug therapy Psychiatric care History of depression Had depression during first , treated with fluoxetine. History of gestational diabetes GDM in first Surgical History Status post delivery (03/08/20) PLTCS. Dx: NRFHT. [place] Daug[place] [facility] [place] Family History Grandmother Hypertension maternal Denies family history of Colon cancer Ovarian cancer Diabetes Heart disease Hyperlipidemia Breast cancer Family history of thyroid problem Uterine cancer Stroke Social History Smoking and tobacco/nicotine status: never used tobacco/nicotine Substance/Drug Use: never
--- NOTE | 2025-05-29 09:08 | W.PM.OPSUD ---
Surgery/Procedure H&P Update DATE OF PROCEDURE: May 29, 2025 DATE H&P PERFORMED: 05/20/25 H&P UPDATE INFORMATION: I have reviewed H&P completed within last 30 days, I have examined patient prior to procedure, No changes to prior documentation, Changes to prior documentation as noted here and Risks and benefits of the procedure reviewed PREOP DIAGNOSIS: Biliary dyskinesia PLANNED PROCEDURE: Operation Date: 05/29/25 09:30 Proposed Procedures p Laparoscopic Cholecystectomy Lap Veronica 89601 K82.8(Not Applicable) - Galindo Light MD
[2025-05-29] MEDS: ceFAZolin 2,000 mg SDV 2000 MG IVP (09:30)
[2025-05-29] MEDS: lidocaine-epi 1% 20 mL INJ INJECTION (09:40)
--- NOTE | 2025-05-29 10:03 | PM.OP ---
Operative Report Date of procedure: May 29, 2025 Pre-op diagnosis: Biliary dyskinesia Post-op diagnosis: same Post-op findings: Unremarkable gallbladder Procedure done: Laparoscopic cholecystectomy Implants: N/A Specimens removed/disposition: Gallbladder sent to pathology Pathology: Gallbladder sent to pathology Surgeon: Galindo Light MD Electric Meter Tester Shop: N/A Anesthesia: General Estimated blood loss (mL): 10 Complications: N/A Findings: Unremarkable gallbladder Condition: stable Disposition: same day Brief History: 25-year-old female who presented with biliary dyskinesia. Discussed risk and benefits and patient agreed to proceed with laparoscopic cholecystectomy possible open. Procedure: I discussed the risks and benefits of laparoscopic cholecystectomy, possible open, and obtained consent prior to proceeding to the operating room. SCDs were utilized. Prophylactic antibiotics were administered. General anesthesia was induced. The patient was placed supine, and was prepped and draped in the usual sterile fashion. Insufflation to 15mmHg was achieved using a Veress needle at Lewis's point. A 5mm optiview trocar was placed at the umbilicus under direct visualization. The left upper quadrant was inspected, and no injuries were noted. Two 5mm ports were placed in the right upper quadrant, and a 12mm working port was placed in the epigastrium. The gallbladder was then retracted cephalad through the lateral RUQ port, and the infundibulum grabbed through the medial RUQ port and retracted laterally. The gallbladder was not inflammed consistent with the diagnosis of biliary dyskinesia. I proceeded to score the peritoneum over the medial aspect of the gallbladder using a laparoscopic hook with electrocautery. Then the infundibulum was retracted medially in order to score the peritoneum over the lateral aspect of the galbladder. Using a combination of energy and blunt dissection with the [place] and a Kittner dissector, the cystic artery and cystic duct were dissected. I then proceeded to dissect the cystic plate in order to to achieve the critical view of safety (CVS - hepatocystic triangle was cleared of fat and fibrous tissue, the lower one-third of the gallbladder was from the liver to expose the cystic plate, two and only two structures were seen entering the gallbladder, the cystic duct and the cystic artery). The cystic artery and the cystic duct were clipped three times (leaving two clips on the proximal end of both structures). I then proceeded to dissect the gallbladder off the liver using hook electrocautery. The specimen was placed in an endocatch bag and retrieved from the abdomen through the port on the epigastrium. I then irrigated the gallbladder fossa with 1L of NS to confirm adequate hemostasis and the absence of any bile leaks. The gallbladder fossa was then cauterized again. Prior to ending the laparoscopic portion, I examined the rest of the abdomen and did not find any abnormalities or injuries. The abdomen was then desufflated. Skin was closed using 4-0 monocryl and surgical glue. The patient woke up from anesthesia and transferred to PACU without any complications.
[2025-05-29] MEDS: oxyCODONE 5 mg IR Tab/Cap PO (11:32)
--- NOTE | 2025-05-29 12:20 | ANE.PACU2 ---
Inpatient post-anesthesia follow up: Airway intact: Yes Vital signs: Temperature 98.3 F Pulse Rate 59 Respiratory Rate 16 Blood Pressure 120/84 Pulse Oximetry 100 Oxygen Delivery Me thod Room Air Oxygen Flow Rate 8 Fraction of Inspir ed Oxygen Hydration adequate: Yes Nausea and vomiting: No Pain level: 1 Mental status: Baseline
== END 2025-05-29 12:20 | disposition home or self-care (01) ==
PROVIDERS: PCP Nurse Practitioner Family; Visit Provider Student in an Organized Health Care Education/Training Program
PROC: 0FT44ZZ Resection of Gallbladder, Percutaneous Endoscopic Approach (ICD-10-PCS; CPT 47562; principal; 2025-05-29 09:30)
DX: K81.1 Chronic cholecystitis (principal); K21.9 Gastro-esophageal reflux disease without esophagitis; K82.8 Other specified diseases of gallbladder; F41.9 Anxiety disorder, unspecified; F43.10 Post-traumatic stress disorder, unspecified; F12.20 Cannabis dependence, uncomplicated
CPT/HCPCS: 47562; 81025; 88304; J0690; J1100; J1171; J1885; J2405; J2704; J2710; J3010; J3490; J7030; J9999

== ENCOUNTER 2025-06-04 11:55 | Emergency (ER) | payer MEDICAID, SELFPAY ==
[2025-06-04 11:58] VITALS: BP 109/73; PULSE 75; TEMP 36.8; O2SAT 99; BMI 27.3
[2025-06-04 12:56] VITALS: BP 119/74; O2SAT 98
--- NOTE | 2025-06-04 13:03 | XRR_ITS ---
PROCEDURE INFORMATION: Exam: XR Chest Exam date and time: 06/04/2025 1:28 PM Age: 25 years old Clinical indication: Pain; On breathing; Additional info: Pain with breathing TECHNIQUE: Imaging protocol: Radiologic exam of the chest. Views: 2 views. COMPARISON: No relevant prior studies available. FINDINGS: Lungs: Lungs are clear. Pleural spaces: There is no pleural effusion or pneumothorax. Heart/Mediastinum: Cardiomediastinal contours are unremarkable. Bones/joints: Bones are unremarkable. XR/XR chest 2V* [id number] IMPRESSION: No acute findings.
--- NOTE | 2025-06-04 13:03 | W.ED.GENADLT ---
HPI - General Adult General: Chief complaint: Abdominal Pain Stated complaint: Rt shoulder/Rib pain Time Seen by Provider: 06/04/25 12:17 History of Present Illness: Patient is a 25-year-old female who had a CCY by Dr. Light last Tuesday presenting with a chief complaint of right upper quadrant and right lower rib cage pain with radiation to the right shoulder blade, worsened with breathing. Patient states that pain is not controlled since she ran out of her oxycodone. Patient denies fever, cough, shortness of breath, hemoptysis. Patient states she vomited this morning. Otherwise, she has been moving her bowels and had a normal bowel movement this morning without blood. No urinary symptoms. She denies possibility of . Surgical scars are well-healing. Patient states that there has not been any redness, purulent drainage from wounds. She does not have a history of DVT/PE. She does not take any hormonal therapy. Related Data Previous Rx's ?Medication ?Instructions ?Recorded pantoprazole 40 mg tablet,delayed 40 mg PO BID 6 weeks #84 tabs 04/25/25 release (Protonix) fluoxetine 20 mg capsule (Prozac) 20 mg PO DAILY #30 caps 05/13/25 hydroxyzine HCl 50 mg tablet 50 mg PO BID PRN anxiety #60 tabs 05/13/25 quetiapine 200 mg tablet (Seroquel) 200 mg PO .HS #30 tabs 05/13/25 ondansetron HCl 4 mg tablet 4 mg PO Q6H PRN nausea and 05/29/25 vomiting #20 tabs Allergies Allergy/AdvReac Type Severity Reaction Status Date / Time bupropion (From Wellbutrin) Allergy [facility]: Medical History Generalized anxiety disorder Cannabis dependence PTSD (post-traumatic stress disorder) On combination antipsychotic drug therapy Psychiatric care History of depression Had depression during first , treated with fluoxetine. History of gestational diabetes GDM in first Surgical History Status post delivery (03/08/20) PLTCS. Dx: NRFHT. Performed by Dr. Daugherty at [facility] [place]. Family History Grandmother Hypertension maternal Denies family history of Colon cancer Ovarian cancer Diabetes Heart disease Hyperlipidemia Breast cancer Family history of thyroid problem Uterine cancer Stroke Social History Smoking and tobacco/nicotine status: never used tobacco/nicotine Substance/Drug Use: never Physical Exam Narrative: EXAM NARRATIVE: Vital signs were reviewed. Patient is alert and oriented. Patient is breathing comfortably, no increased WOB or accessory muscle use. SpO2 is above 95% on RA. Lungs are clear bilaterally, no rhonchi or wheezing. Normal heart sounds. No hypotension or tachycardia. Patient has pain with palpation of the musculature around the right shoulder blade. She has mild abdominal pain in the right upper quadrant but abdominal exam is not consistent with peritonitis. Surgical incisions appear well-healing and do not appear infected. Patient is moving all extremities, no deformity or gross injury. Course Vital Signs: Vital signs: Vital Signs Temperature 98.2 F 06/04/25 11:58 Pulse Rate 75 06/04/25 11:58 Blood Pressure 128/76 06/04/25 13:21 Pulse Oximetry 98 06/04/25 13:46 Oxygen Delivery Me thod Room Air 06/04/25 13:46 MDM - General Adult Medical Decision Making 25-year-old female with a chief complaint of right upper quadrant pain/right lower rib cage pain with radiation to the right shoulder, worsened with deep breathing. This developed a couple of days after surgery after initial improvement of pain. She has run out of her oxycodone. Differential diagnose includes but is not limited to, postsurgical pain, postsurgical complication such as infection, pneumonia, PE, other. On exam she Eddy Jorje stable and nontoxic-appearing. She was evaluate CBC, CMP, lipase, D-dimer, UA, chest x-ray. She was treated with IM Toradol and p.o. Valium. Patient has a normal white blood cell count. She does not have any actionable electrolyte abnormalities. She has a normal lipase. D-dimer is elevated but per YEARs criteria patient does not need further testing for PE. On reassessment, patient is feeling much better and states the pain in her shoulder has improved with Toradol and muscle relaxer Valium. I did discuss with patient that there remains a small possibility that she could have a PE. However at this time, I feel that the risk is low because she is not short of breath, does not have chest pain, has not had fever, cough, hemoptysis, syncope or evidence of DVT/PE. Recent surgery is her sole risk factor. Through shared decision making we deferred any further testing at this time. Patient was counseled on supportive care measures at home and given strict return precautions should any new symptoms arise. At this time, patient is comfortable with discharge with close monitoring with plan to return if she feels worse. Patient was discharged in stable condition. Lab Data 06/04/25 13:30 06/04/25 13:30 Radiology Impressions Chest X-Ray 06/04/25 13:03 IMPRESSION: No acute findings. Laboratory Results WBC 8.50 10^3/uL (3.29-11.43) 06/04/25 13:30 RBC 4.80 10^6/uL (3.85-5.65) 06/04/25 13:30 Hgb 9.60 g/dL (11.27-16.99) L 06/04/25 13:30 Hct 32.3 % (36-47) L 06/04/25 13:30 MCV 67.3 fl (85-98) L 06/04/25 13:30 MCH 20.0 pg (27-33) L 06/04/25 13:30 MCHC 29.7 g/dL (30-55) L 06/04/25 13:30 RDW 17.6 % (12.1-15.1) H 06/04/25 13:30 Plt Count 286 10^3/cmm (157-399) 06/04/25 13:30 MPV 10.0 fL (7.4-10.4) 06/04/25 13:30 Neut % (Auto) 71.0 % 06/04/25 13:30 Lymph % (Auto) 19.4 % 06/04/25 13:30 Atkinson % (Auto) 6.0 % 06/04/25 13:30 Eos % (Auto) 3.1 % 06/04/25 13:30 Baso % (Auto) 0.4 % 06/04/25 13:30 Neut # (Auto) 6.04 10^3/uL (1.8-7.7) 06/04/25 13:30 Lymph # (Auto) 1.7 10^3/uL (0.8-4.8) 06/04/25 13:30 Atkinson # (Auto) 0.5 10^3/uL (0.2-0.9) 06/04/25 13:30 Eos # (Auto) 0.3 10^3/uL (0.0-0.8) 06/04/25 13:30 Baso # (Auto) 0.0 10^3/uL (0.0-0.1) 06/04/25 13:30 Nucleated RBC % (auto) 0 % 06/04/25 13:30 Nucleated RBCs # 0.0 /100WBC 06/04/25 13:30 D-Dimer 0.78 ug/mLFEU (0-0.59) H 06/04/25 13:30 Sodium 138 mmol/L (136-145) 06/04/25 13:30 Potassium 4.0 mmol/L (3.5-5.1) 06/04/25 13:30 Chloride 104 mmol/L (98-107) 06/04/25 13:30 Carbon Dioxide 22 mmol/L (22-29) 06/04/25 13:30 Anion Gap 16.0 (5-19) 06/04/25 13:30 BUN 9 mg/dL (6-20) 06/04/25 13:30 Creatinine 0.5 mg/dL (0.5-0.9) 06/04/25 13:30 GFR Calculation 150.3 mL/min (90-130) H 06/04/25 13:30 Glucose 93 mg/dL (65-115) 06/04/25 13:30 Calculated Osmolality 284 mOsm/kg (285-295) L 06/04/25 13:30 Calcium 8.7 mg/dL (8.5-10.5) 06/04/25 13:30 Total Bilirubin 0.3 mg/dL (0.15-1.2) 06/04/25 13:30 AST 34 U/L (0-32) H 06/04/25 13:30 ALT 99 U/L (0-33) H 06/04/25 13:30 Alkaline Phosphatase 108 U/L (35-105) H 06/04/25 13:30 Total Protein 7.1 g/dL (6.6-8.7) 06/04/25 13:30 Albumin 4.3 g/dL (3.5-5.2) 06/04/25 13:30 Globulin 2.8 g/dL (1.3-4.6) 06/04/25 13:30 Lipase 25 U/L (13-60) 06/04/25 13:30 All radiology interpretation(s) finalized by discharge Discharge Plan Discharge Patient Disposition: Home Condition: Stable Prescriptions: No Action pantoprazole [Protonix] 40 mg tablet,delayed release (DR/EC) 40 mg PO BID 42 Days Qty: 84 0RF fluoxetine [Prozac] 20 mg capsule 20 mg PO DAILY Qty: 30 1RF quetiapine [Seroquel] 200 mg tablet 200 mg PO .HS Qty: 30 1RF hydroxyzine HCl 50 mg tablet 50 mg PO BID PRN (Reason: anxiety) Qty: 60 1RF ondansetron HCl 4 mg tablet 4 mg PO Q6H PRN (Reason: nausea and vomiting) Qty: 20 0RF Discharge Orders: Discharge ED (Routine); Ordered 06/04/25 Ordered By: Sumi Sanchez Referrals: Heather Tse ENGINEERING TECHNICAL SPECIALIST [Primary Care Provider, Nurse Practitioner] Patient Instructions: Opioid Safety, Pain Management, Patient Portal & Masood Instructions Print Language: Vietnamese Coding Level of Care Code ED Facilities Technician for Ramos Dee
[2025-06-04 13:21] VITALS: BP 128/76; O2SAT 99
[2025-06-04 13:35] LABS: Hematocrit 32.3 % (36-47); Hemoglobin 9.60 g/dL (11.27-16.99); Mean Corpuscular HGB Conc 29.7 g/dL (30-55); Mean Corpuscular Hemoglobin 20.0 pg (27-33); Mean Corpuscular Volume 67.3 fl (85-98); Nucleated Red Blood Cells % 0 %; Platelet Count 286 10^3/cmm (157-399); Red Blood Count 4.80 10^6/uL (3.85-5.65); White Blood Count 8.50 10^3/uL (3.29-11.43)
[2025-06-04 13:46] VITALS: O2SAT 98
[2025-06-04 13:56] LABS: Alanine Aminotransferase 99 U/L (0-33); Albumin Level 4.3 g/dL (3.5-5.2); Alkaline Phosphatase 108 U/L (35-105); Anion Gap 16.0 (5-19); Aspartate Amino Transferase 34 U/L (0-32); Blood Urea Nitrogen 9 mg/dL (6-20); Calcium 8.7 mg/dL (8.5-10.5); Carbon Dioxide 22 mmol/L (22-29); Chloride 104 mmol/L (98-107); Creatinine Clr Calc Pharmacy 198.9918; Globulin 2.8 g/dL (1.3-4.6); Glucose 93 mg/dL (65-115); Lipase 25 U/L (13-60); Osmolality Calculated 284 mOsm/kg (285-295); Potassium 4.0 mmol/L (3.5-5.1); Sodium 138 mmol/L (136-145); Total Protein 7.1 g/dL (6.6-8.7)
[2025-06-04 14:18] VITALS: BP 113/59; PULSE 61; RESP 16; O2SAT 97
[2025-06-04 14:21] LABS: Glucose Urine UA Negative (Normal); Nitrate Urine Negative (Negative); Specific Gravity, Urine 1.015 (1.005-1.030)
[2025-06-04 14:24] LABS: Add Urine Microscopic? YES
== END 2025-06-04 14:19 | disposition home or self-care (01) ==
PROVIDERS: Emergency Medicine; Emergency Provider Emergency Medicine; PCP Nurse Practitioner Family
DX: R07.1 Chest pain on breathing (principal); R10.11 Right upper quadrant pain; R07.81 Pleurodynia; M25.511 Pain in right shoulder
CPT/HCPCS: 36415; 71046; 80053; 81001; 83690; 85025; 85378; 96372; 99284; J1885; J9999